=== PATIENT | female | born 1965 | race Caucasian/White ===

== ENCOUNTER 2016-11-28 14:22 | Inpatient (IN) | payer OTHER ==
[~2016-11-28] VITALS: Ht 154.9 cm; Wt 76.0 kg
[2016-11-28 16:20] VITALS: BP 151/83; PULSE 92; TEMP 37; O2SAT 95; Ht 154.9 cm; Wt 76.0 kg
[2016-11-28] MEDS ORDERED: MoRPHine SULFATE 4 MG/ML 1 ML CARP\\VIAL IV STA (17:00)
[2016-11-28] MEDS ORDERED: PATIENT'S ALLERGY INFO NEEDS ENTERED SCH (17:00)
[2016-11-28] MEDS ORDERED: APIX1TAB3 PO (17:26)
[2016-11-28] MEDS ORDERED: SERT100T PO (17:26)
[2016-11-28] MEDS ORDERED: CYAN250T PO (17:26)
[2016-11-28] MEDS ORDERED: AMLO-114 PO (17:26)
[2016-11-28] MEDS ORDERED: VTMD1000 PO (17:26)
[2016-11-28] MEDS ORDERED: PANT1TAB48 PO (17:26)
[2016-11-28] MEDS ORDERED: ALUMINUM/MAGNESIUM/SIMETH (MAALOX MAX) 30 ML UDC PO PRN (17:30)
[2016-11-28] MEDS ORDERED: MAGNESIUM HYDROXIDE SUSP 30 ML UDC PO PRN ×2 (17:30→20:15)
[2016-11-28] MEDS ORDERED: ACETAMINOPHEN 325 MG TAB PO PRN (17:30)
[2016-11-28] MEDS ORDERED: POLYETHYLENE (MIRALAX) 17 GM PACK PO PRN ×2 (17:30→20:15)
[2016-11-28] MEDS ORDERED: ONDANSETRON INJ 2 MG/ML 2 ML VIAL IV PRN (17:30)
[2016-11-28] MEDS ORDERED: TIOTROPIUM BROMIDE 5 PUFF/90 MCG INH INH ONE (17:32)
[2016-11-28] MEDS ORDERED: NICOTINE 21 MG/24 HR TDSY TD ONE (17:32)
--- NOTE | 2016-11-28 17:32 | History and Physical ---
History & Physical Date & Time of Service: November 28, 2016 at 17:31 Chief Complaint: Fracture Of Left Femoral Neck Primary Care Physician: Naima Mlcain M.D. Social History Smoking Status: Current Every Day Smoker Allergies Coded Allergies: No Known Allergies (Unverified , 11/28/16) Home Medications Scheduled Amlodipine (Norvasc), 10 MG PO DAILY Apixaban (Eliquis), 5 MG PO BID Cholecalciferol (Vitamin D3), 1 TAB PO DAILY Cyanocobalamin (Vitamin B-12), 250 MCG PO DAILY Pantoprazole (Protonix), 1 TAB PO DAILY Sertraline Hcl (Zoloft), 100 MG PO DAILY Physical Exam Vital Signs Date Time Temp Pulse Resp B/P Pulse Ox O2 Delivery O2 Flow Rate FiO2 11/28/16 16:20 37.0 92 18 151/83 95 Nasal Cannula 2.0 Impression Assessment and Plan admit #[id number] Advanced Directives Existing Living Will: No Existing Power of Control Specialist: No VTE Prophylaxis VTE Risk Assessment Done? Y/N: Yes Risk Level: Moderate
[2016-11-28] MEDS ORDERED: ALBUTEROL HFA 8 GM INHALER INH PRN (17:45)
--- NOTE | 2016-11-28 18:28 | HISTORY & PHYSICAL EXAMINATION ---
DATE OF ADMISSION: 11/28/2016 CHIEF COMPLAINT: Fall and right leg pain. HISTORY OF PRESENT ILLNESS: The patient is a very pleasant 51-year-old female who had actually gone to latter-day. She notes that was the first time she had gone, her daughter was really going to be happy and unfortunately she does not know if she stepped wrong or if she just got her foot caught on the carpet or something, but she fell and had immediate right leg pain. She was taken to the [facility] where she was found to have femur fracture. Orthopedics was going to fix it but unfortunately she is an end-stage renal disease patient on dialysis, and they do not have nephrology or dialysis at that hospital, because of that we were asked to see her for admission. She notes no active complaints other than the right leg pain. She notes absolutely no syncope, no chest pain or shortness of breath or anything like that leading to the fall, and other than the right leg pain she generally feels pretty good. REVIEW OF SYSTEMS: Otherwise negative, except for as above. PAST MEDICAL HISTORY: End-stage renal disease, on dialysis; DVT about 6 months ago, unclear about exactly how provoked it was, but it seems like it was provoked, that is why she is on the Eliquis; congestive heart failure; hypertension; COPD. HOME MEDICATIONS: Norvasc 10 mg daily, Eliquis 5 mg p.o. b.i.d., Protonix 40 mg b.i.d., vitamin B12 250 mcg daily, vitamin D 3000 international units daily, Zoloft 100 mg daily. PAST SURGICAL HISTORY: Vascular surgeries in regards to dialysis access. ALLERGIES: No known drug allergies. SOCIAL HISTORY: She does smoke about a pack a day. No alcohol. She lives at home. FAMILY HISTORY: No significant family history. PHYSICAL EXAMINATION: VITAL SIGNS: Temperature 37, pulse 92, respiratory rate 18, blood pressure 151/83, 95% on 2 liters. GENERAL: She is awake, alert, oriented x3, appears a little uncomfortable but otherwise in no acute distress. HEENT: Normocephalic, atraumatic. Mucous membranes are moist. CARDIOVASCULAR: Regular without rubs, murmurs, or gallops. LUNGS: Clear to auscultation bilaterally. No rales, rhonchi, or wheezes with good effort. ABDOMEN: Soft, nondistended, nontender, no masses or organomegaly. EXTREMITIES: Without cyanosis, clubbing or edema. No calf tenderness. SKIN: Shows no rashes, no pallor or icterus. NEUROLOGIC: Shows cranial nerves II-XII to be grossly intact. Gross motor and sensory are intact. MENTAL STATE: Shows good recent and remote recall. Normal mood and affect. Good judgment and insight. MUSCULOSKELETAL: Shows her right leg to be shortened and externally rotated and tender with movement. LABORATORIES AND DIAGNOSTICS: Her CBC shows a white count of 16.9 with a hemoglobin 11.7, platelets 320. Sodium 141, potassium 3.7, chloride 99, CO2 28, BUN 39, creatinine 7.65, calcium 9.1, glucose 93. Her x-rays showed a femur fracture. The films are not yet viewable here but are being loaded. ASSESSMENT AND PLAN: 1. Fall. Fortunately, it appears to be a mechanical fall. Unfortunately, the main "fallout" is the femur fracture. 2. Femur fracture. Consult orthopedics for evaluation for operative treatment. Also, in regards to her bone health, I will check a vitamin D and a parathyroid hormone and recommend an outpatient DEXA in the near future. 3. End-stage renal disease on Tuesday, , Tuesday dialysis. Consult nephrology for ongoing management of this. 4. Hypertension. Continue her amlodipine. 5. Deep venous thrombosis: Her acute DVT was about 6 months ago, so it appears safe to hold her Eliquis for the surgery; however, given that she recently formed what sounds to have been a provoked DVT and she is now obviously in a very provoking situation. We will want to resume her Eliquis as soon as appears to be safe postop. 6. Chronic obstructive pulmonary disease. She has wheezing slightly. We will start Spiriva for now to help get her through the hospital stay as well as albuterol p.r.n. 7. Tobacco abuse. Start her on a nicotine patch. MTDD
[2016-11-28] MEDS: MoRPHine SULFATE 4 MG/ML 1 ML CARP\\VIAL IV PRN ×2 (19:03→21:17)
[2016-11-28] MEDS ORDERED: BISACODYL 10 MG SUPP PR PRN (20:15)
[2016-11-28] MEDS ORDERED: NALOXONE HCL 0.4 MG/1 ML VIAL/CARP IV PRN (20:15)
[2016-11-28] MEDS ORDERED: SOD PHOSPHATE/SOD BIPHOSPHATE ENEMA 132 ML BTL PR PRN (20:15)
[2016-11-28] MEDS: DOCUSATE SODIUM/SENNA 50/8.6MG TAB PO SCH (21:26)
[2016-11-28] MEDS ORDERED: ACETAMINOPHEN 500 MG TAB PO STA (22:07)
[2016-11-28] MEDS ORDERED: ERGOCALCIFEROL 50,000 INTER.UNIT CAP PO ONE (22:28)
[2016-11-28] MEDS ORDERED: HYDROmorphone INJ 1 MG/ML SYR IV PRN (22:45)
[2016-11-28 23:40] VITALS: BP 152/88; PULSE 82; TEMP 36.7; O2SAT 93
[2016-11-29] VITALS (8 sets, daily range): BP systolic 94–131; BP diastolic 56–86; PULSE 78–90; TEMP 36.3–36.8; O2SAT 92–97
[2016-11-29] MEDS ORDERED: HYDROmorphone INJ 1 MG/ML SYR IV STA (00:18)
[2016-11-29] MEDS: LORAZEPAM INJ 0.5 MG in SYRINGE 0.25 ML IV PRN ×3 (00:57→09:39)
[2016-11-29] MEDS: HYDROmorphone INJ 1 MG/ML SYR IV PRN ×6 (03:30→22:16)
[2016-11-29] MEDS: ACETAMINOPHEN IV 650 MG in EMPTY BAG 0 ML IV SCH ×2 (03:35→10:38)
--- NOTE | 2016-11-29 05:31 | ORTHOPEDIC CONSULTATION ---
DATE OF CONSULTATION: 11/28/2016 CHIEF COMPLAINT: Special attention to right hip fracture. HISTORY OF PRESENT ILLNESS: This is a 51-year-old female transferred from [facility] with right femoral neck fracture. She was transferred due to end-stage renal disease. She notes a mechanical fall. As she was going to [facility] today, she stated her right foot caught and she fell. She feels that the fall caused her fracture rather than a fracture causing her fall. She denies any syncope, chest pain or other pain problems or injury. PAST MEDICAL HISTORY: End-stage renal disease, on dialysis; history of DVT 6 months ago, currently on Eliquis; congestive heart failure; hypertension; COPD. MEDICATIONS: Norvasc, Eliquis 5 mg p.o. b.i.d. She states she last took this on Tuesday morning. Protonix 40 mg b.i.d., vitamin B12, vitamin D, and Zoloft. PAST SURGICAL HISTORY: Vascular surgeries for dialysis access. SOCIAL HISTORY: She does smoke pack a day. She is currently ambulatory without assistive aids. ALLERGIES: No known drug allergies. Xrays: AP pelvis shows a displaced intracapsular femoral neck fracture. There is a benign appearing lytic area and any intratrochanteric region does not have an aggressive appearance. PHYSICAL EXAMINATION: Right lower extremity examination: she has no tenderness in her calf. Calves are soft. She can flex and extend the ankle and the toes. She has pain with log roll of the hip. Right lower extremity is shortened and externally rotated. Right lower extremity shows pain with log roll. ASSESSMENT: 1. Right intracapsular femoral neck fracture. 2. Lytic lesion intertrochanteric region, likely benign. 3. End-stage renal disease. 4. History of recent deep venous thrombosis 6 months ago. 5. On Eliquis, last taken Tuesday. PLAN: I discussed treatment with her. Our recommendation would be for either hip hemiarthroplasty versus total hip replacement. We will continue to hold her Eliquis and when this is out of her system, we will plan for surgical treatment shortly. Her films are from [facility], but are available through the PACS viewer. Appreciate medical management and continued dialysis, typically on Tuesdays, and Saturdays. We will tentatively make her n.p.o. for tomorrow in possible anticipation of surgical intervention tomorrow afternoon. She is currently on isolation, but denies any recent infection. TENZIN
[2016-11-29] MEDS ORDERED: CEFAZOLIN 1000MG/55 ML D5W IV SCH (06:00)
[2016-11-29 07:09] LABS: BASO % 0.6 %; BASO ABS # 0.08 K/uL (0-0.2); COMPLETE YES; EOS % 3.1 %; HEMATOCRIT 34.3 % (37-47); IG% 0.6 %; LYMPH % 8.9 %; LYMPH ABS # 1.14 K/uL (1.2-3.4); MEAN CELL VOLUME 104.9 fL (80-100); MEAN CORPUSCULAR HEMOGLOBIN 31.8 pg (25-34); MEAN CORPUSCULAR HGB CONC 30.3 g/dl (32-36); MEAN PLATELET VOLUME 9.5 fL (7.4-10.4); MONO % 6.2 %; NEUT % 80.6 %; PLATELET COUNT 324 K/uL (130-400); RED BLOOD COUNT 3.27 M/uL (4.2-5.4); WHITE BLOOD COUNT 12.76 K/uL (4.8-10.8)
[2016-11-29 07:21] LABS: PARTIAL THROMBOPLASTIN RATIO 1.1; PROTHROMBIN TIME (PATIENT) 10.5 SECONDS (9.0-12.0)
[2016-11-29 07:50] LABS: BUN/CREATININE RATIO 5.7 (10-20); CALCIUM 8.7 mg/dl (8.5-10.1)
--- NOTE | 2016-11-29 08:32 | Clinical Documentation Query ---
CLINICAL DOCUMENTATION QUERY 51-y/o female who fell and fractured her right femur. Query #1/2 In your clinical opinion is this patient being managed for: ( x ) Likely osteoporotic traumatic right femur fracture due to ground level fall where normal healthy bone would not have fractured. ( ) Other explanation of clinical findings (Please Explain) ( ) Unable to determine (Please Define) ( ) Need to Discuss ( ) Not Agree The medical record reflects the following clinical findings, treatment, and risk factors. Clinical Indicators: 51 y/o female who fell from ground level to right side. A right intracapsular femur fracture was diagnosed by orthopedics. An osteoporotic workup was initiated. Vitamin D 26.7, PTH intact 475.5, Treatment: Orthopedic consult, Vitamin D level, parathyroid level, outpatient DEXA scan. Risk Factors: Age, sex, elevated PTH and low Vitamin D Query #2/2 In your clinical opinion is this patient being managed for: (x ) Chronic diastolic (Preserved EF) heart failure ( ) Other explanation of clinical findings (Please Explain) ( ) Unable to determine (Please Define) ( ) Need to Discuss ( ) Not Agree The medical record reflects the following clinical findings, treatment, and risk factors. Clinical Indicators: H&P notes hx of CHF. The medical record documentation is now expected to include definitive and explicit description of the patient's heart failure; vague terms such as "heart failure," ventricular dysfunction," and "CHF" may not fully capture the physician's intended level of severity. Treatment: IM consult, Norvasc, inpatient dialysis, Risk Factors: Age, ESRD, and HTN Please clarify and document your clinical opinion in the progress notes and discharge summary. Terms such as "probable", "suspected", "likely", "questionable", "possible", or "still to be ruled out" are acceptable. IF IN AGREEMENT, YOU MUST DOCUMENT ABOVE DIAGNOSTIC STATEMENT IN DAILY PROGRESS NOTES AND DISCHARGE SUMMARY. This document is not part of the patient's record. Thank You, Celio Larry RN [phone]
[2016-11-29] MEDS: AMLODIPINE BESYLATE 5 MG TAB PO SCH (08:39)
[2016-11-29] MEDS: SERTRALINE HCL 100 MG TAB PO SCH (08:40)
[2016-11-29] MEDS: CYANOCOBALAMIN 500 MCG TAB (VIT B-12) PO SCH (08:40)
[2016-11-29] MEDS: PANTOprazole SOD 40 MG TAB PO SCH (08:40)
[2016-11-29] MEDS: TIOTROPIUM BROMIDE 5 PUFF/90 MCG INH INH SCH (09:00)
[2016-11-29] MEDS ORDERED: CHOLECALCIFEROL 1000 INTER.UNIT TAB PO SCH (09:00)
[2016-11-29] MEDS: NICOTINE 21 MG/24 HR TDSY TD SCH (09:16)
--- NOTE | 2016-11-29 10:38 | Nephrology Consultation ---
Nephrology Consultation Date & Providers Date of Consultation: November 29, 2016. Primary Care Provider: Naima Mclain M.D. Referring Provider: Reason for Consultation To provide in patient HD for this patient w/ ESRD on TTS HD admitted with right hip fracture. History of Present Illness Ms. Mitchell is a 51 year old white female who is seen at the request of Dr. Monroy to provide in patient HD and assist w/ her medical management. Medical records in the hospital EMR were reviewed today and are summarized as follows: The patient has ESRD due to HTN. 4 years ago she was living in [place] when she developed kidney failure. She was started on peritoneal dialysis and used a nighttime cycler. 2 years ago she moved to [place], [place] to live with her son. The local dialysis unit did not offer PD therapy and the patient had her catheter removed. Attempts were made to create a right upper arm AVF. This was unsuccessful. The patient has been dialyzing using a R IJ THC. She has had this changed out several times due to infection. She reports that she is scheduled to have a left upper arm AVF created by Dr. Mejía later this month. The patient denies complications with her dialysis treatments. I did contact the [facility] HD unit and spoke w/ Hortencia RN . She reports that the patient frequently misses treatments, has not kept appointments to have new AVF created and has been difficult to contact by telephone. Her primary inseam trimmer is Dr. Foster. Her dialysis prescription is TTS 3.5 hr 2K 2.5Ca EDW 68.5 Kg Epo 5800 Venofer 50 weekly Hectrol 9 mcg w/ each dialysis. The patient has a h/o CHF, DVT on anticoagulation therapy , HTN, depression, COPD w/ ongoing tobacco use. Ms. Mitchell was attending [facility] this weekend when she suffered a mechanical fall. She fractured her right femoral neck. She is scheduled for surgery later today. Allergies Coded Allergies: No Known Allergies (Unverified , 11/28/16) Inpatient Medications Current Inpatient Medications Medications (Trade) Dose Ordered Sig/Francisco Route Start Time Stop Time Status Last Admin Dose Admin Acetaminophen (Tylenol Tab) 650 mg Q4H PRN PO 11/28/16 17:30 12/28/16 17:29 Al Hydrox/Mg Hydrox/Simethicone (Maalox Max Susp) 15 ml Q4H PRN PO 11/28/16 17:30 12/28/16 17:29 Ondansetron HCl (Zofran Inj) 4 mg Q6H PRN IV 11/28/16 17:30 12/28/16 17:29 Amlodipine Besylate (Norvasc Tab) 10 mg DAILY PO 11/29/16 09:00 12/29/16 08:59 Cholecalciferol (Vitamin D Tab) 1,000 inter.unit DAILY PO 11/29/16 09:00 12/29/16 08:59 Cyanocobalamin (Vitamin B-12 Tab) 250 mcg DAILY PO 11/29/16 09:00 12/29/16 08:59 Pantoprazole Sodium (Protonix Tab) 40 mg DAILY PO 11/29/16 09:00 12/29/16 08:59 Sertraline HCl (Zoloft Tab) 100 mg DAILY PO 11/29/16 09:00 12/29/16 08:59 Nicotine (Nicoderm Cq 21MG Patch) 1 patch QAM TD 11/29/16 09:00 12/29/16 08:59 11/29/16 09:16 1 PATCH Miscellaneous (Remove Nicoderm Patch) 1 ea HS N/A 11/28/16 21:00 12/28/16 20:59 Tiotropium [place] (Spiriva Handihaler Inhaler) 1 puff QAM INH 11/29/16 09:00 12/29/16 08:59 Albuterol (Ventolin Hfa Inhaler) 1 puffs Q4 PRN INH 11/28/16 17:45 12/28/16 17:44 Naloxone HCl (Narcan Inj) 0.1 mg PRN PRN IV 11/28/16 20:15 12/28/16 20:14 Senna/Docusate Sodium (Senokot S Tab) 2 tab HS PO 11/28/16 21:00 12/28/16 20:59 11/28/16 21:26 2 TAB Polyethylene (Miralax Powder Packet) 17 gm DAILY PRN PO 11/28/16 20:15 12/28/16 20:14 Magnesium Hydroxide (Milk Of Magnesia Susp) 30 ml DAILY PRN PO 11/28/16 20:15 12/28/16 20:14 Bisacodyl (Dulcolax Supp) 10 mg DAILY PRN IN 11/28/16 20:15 12/28/16 20:14 Sodium Biphosphate/ Sodium Phosphate 132 ml 132 ml PRN PRN IN 11/28/16 20:15 12/08/16 20:14 Cefazolin Sodium (Ancef 1000mg/55 ml D5W) 55 ml @ 100 mls/hr PREOP IV 11/29/16 06:00 11/29/16 18:00 Ergocalciferol 42615 interunit 50,000 interunit Del Cid@0900 PO 12/05/16 09:00 01/04/17 08:59 Acetaminophen/ Empty Bag (Ofirmev Iv/ Empty Iv Bag 100ml) 65 ml @ 260 mls/hr Q6H IV 11/29/16 04:00 12/29/16 03:59 11/29/16 03:35 260 MLS/HR Hydromorphone HCl 1 mg 1 mg Q2H PRN IV 11/29/16 02:00 12/13/16 01:59 11/29/16 07:51 1 MG Lorazepam/Syringe (Ativan Inj/ Syringe) 0.5 ml @ 0.5 mls/min Q4H PRN IV 11/29/16 00:45 12/29/16 00:44 11/29/16 09:39 0.5 MLS/MIN Epoetin Tl (Procrit Inj) 6,000 units ONE ONCE IV. 11/30/16 06:00 11/30/16 06:01 UNV Paricalcitol 3 mcg 3 mcg ONE ONCE IV. 11/30/16 06:00 11/30/16 06:01 UNV Iron Sucrose/ Syringe (Venofer Inj/ Syringe) 5 ml @ 1 mls/min ONE ONCE IV 11/30/16 06:00 11/30/16 06:04 UNV Heparin Sodium (Porcine) (No Heparin In Dialysis) 1 ea ONE ONCE N/A 11/30/16 06:00 11/30/16 06:01 UNV Family History Brother w/ ESRD from unknown cause. He is s/p renal transplant Social History Smoking Status: Current Every Day Smoker . Medically disabled. 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 Son 08/10. Three children in good health. Current every day smoker. Review of Systems Constitutional: No fever Respiratory: + wheezing, No cough, No sputum Cardiovascular: No chest pain Abdomen: No nausea, No pain, No vomiting Integumentary: No rash A complete review of systems was performed. Pertinent positives are noted above. All other systems are negative. Physical Exam Date Time Temp Pulse Resp B/P Pulse Ox O2 Delivery O2 Flow Rate FiO2 11/29/16 07:25 Nasal Cannula 2.0 11/29/16 07:15 36.7 90 18 131/84 92 Nasal Cannula 1.0 11/29/16 00:20 Nasal Cannula 2.0 11/28/16 23:40 36.7 82 20 152/88 93 Nasal Cannula 1.0 11/28/16 16:20 37.0 92 18 151/83 95 Nasal Cannula 2.0 11/28/16 16:20 Nasal Cannula 2.0 11/28/16 16:20 37.0 92 18 151/83 95 Nasal Cannula 2.0 General Appearance: + mild distress (due to right hip discomfort) Head: normocephalic, atraumatic Eyes: PERRL, EOMI ENT: + pertinent finding (dentition in poor repair) Neck: supple, + pertinent finding (R IJ THC with dry dressing in place) Respiratory/Chest: + wheezing (soft bilateral expiratory wheezing) Cardiovascular: regular rate, rhythm Abdomen/GI: normal bowel sounds, non tender, soft, + pertinent finding (healed incisions from previous PD catheter) Extremities/Musculoskelatal: + pertinent finding (RUE AVF silent) Neurologic/Psych: alert, oriented x 3 Skin: warm/dry, no rash Laboratory Results Last 24 Hours Test 11/28/16 18:20 11/29/16 06:34 25-Hydroxy Vitamin D Total 26.7 ng/ml Parathyroid Hormone (Intact) 475.5 pg/mL White Blood Count 12.76 K/uL Red Blood Count 3.27 M/uL Hemoglobin 10.4 g/dL Hematocrit 34.3 % Mean Corpuscular Volume 104.9 fL Mean Corpuscular Hemoglobin 31.8 pg Mean Corpuscular Hemoglobin Concent 30.3 g/dl Platelet Count 324 K/uL Mean Platelet Volume 9.5 fL Neutrophils (%) (Auto) 80.6 % Lymphocytes (%) (Auto) 8.9 % Monocytes (%) (Auto) 6.2 % Eosinophils (%) (Auto) 3.1 % Basophils (%) (Auto) 0.6 % Neutrophils # (Auto) 10.27 K/uL Lymphocytes # (Auto) 1.14 K/uL Monocytes # (Auto) 0.79 K/uL Eosinophils # (Auto) 0.40 K/uL Basophils # (Auto) 0.08 K/uL RDW Standard Deviation 69.8 fL RDW Coefficient of Variation 18.5 % Immature Granulocyte % (Auto) 0.6 % Immature Granulocyte # (Auto) 0.08 K/uL Prothrombin Time 10.5 SECONDS Prothromb Time International Ratio 1.0 Activated Partial Thromboplast Time 28.5 SECONDS Partial Thromboplastin Ratio 1.1 Sodium Level 134 mmol/L Potassium Level 4.0 mmol/L Chloride Level 96 mmol/L Carbon Dioxide Level 27 mmol/L Anion Gap 11.0 mmol/L Blood Urea Nitrogen 51 mg/dl Creatinine 9.00 mg/dl Est Creatinine Clear Calc Drug Dose 6.6 ml/min Estimated GFR () 5.3 Estimated GFR (Non- 4.6 BUN/Creatinine Ratio 5.7 Random Glucose 91 mg/dl Calcium Level 8.7 mg/dl Total Bilirubin 0.4 mg/dl Direct Bilirubin 0.1 mg/dl Aspartate Amino Transf (AST/SGOT) 19 U/L Alanine Aminotransferase (ALT/SGPT) 20 U/L Alkaline Phosphatase 117 U/L Total Protein 6.6 gm/dl Albumin 3.3 gm/dl Impression (1) End-stage renal disease on hemodialysis (2) Femur fracture (3) Hypertension (4) Anemia (5) COPD (chronic obstructive pulmonary disease) (6) Current every day smoker (7) Depression Patient admitted following mechanical fall resulting in right femoral neck fracture. She is scheduled for orthopedic repair today. She has ESRD due to HTN and has been on [employer] x 4 years. Patient currently dialyzes TTS at [facility] (3.5hr 2K 2Ca HCO3 40 Na 138 Heparin 2000 load/1000hr EDW 68.5 Epo 5800 Venofer 50 weekly Hectrol 9 mcg each treatment). Patient dialyzes via R IJ THC she is awaiting AVF creation. PMH - ESRD, HTN, CHF, DVT on anticoagulation therapy, depression, COPD w/ ongoing tobacco use. Recommendations END STAGE RENAL DISEASE: -- HD tomorrow. Heparin free. Chronic orders from home HD obtained and reviewed today. Orders entered into EMR and HD RN notified -- Recommend ESRD diet -- Will provide renal vitamin HYPERTENSION: -- Blood pressure is currently acceptable. Continue to monitor. No change to current antihypertensive regimen at this time. ANEMIA: -- Monitor H&H -- Will provide DEMETRIA w/ dialysis treatments BONE & MINERAL METABOLISM: -- Will provide Zemplar w/ dialysis treatments -- Stop OTC vitamin D and ergocalciferol OTHER: -- Patient has h/o DVT on anticoagulation therapy. No data currently available regarding the safety of Eliquis in HD patients. Recommend using Warfarin if continued anticoagulation is needed -- Recommend consultation w/ smoking cessation RN while hospitalized -- Await further Orthopedic input / intervention
[2016-11-29] MEDS ORDERED: HYDROmorphone INJ 1 MG/ML SYR IV ONE (12:15)
[2016-11-29] MEDS ORDERED: MIDAZOLAM HCL 1 MG/ML 2ML VIAL ONE (13:23)
[2016-11-29] MEDS ORDERED: FENTANYL CITRATE INJ 50 MCG/1 ML 2 ML VIAL ONE (13:24)
--- NOTE | 2016-11-29 14:13 | History & Physical Bridge Note ---
H&P Re-Evaluation Bridge Note: I have examined the patient, reviewed the History & Physical and in the interval since the performance of the History & Physical I have noted the following changes of clinical significance: No changes noted
[2016-11-29] MEDS ORDERED: ORTHO JOINT ANESTHETIC ONE ×3 (14:51→16:16)
[2016-11-29] MEDS ORDERED: BUPIVACAINE 0.5 % 5 MG/1 ML PF 10ML VIAL ONE (14:52)
[2016-11-29] MEDS ORDERED: POVIDONE-IODINE OP SOLN 30 ML BTL ONE (14:53)
[2016-11-29] MEDS ORDERED: BACITRACIN 50000 UNIT VIAL ONE (14:55)
[2016-11-29] MEDS ORDERED: VANCOMYCIN INJ 400 MG in NSS 100ML IR SCH (16:00)
[2016-11-29] MEDS ORDERED: POLYMYXIN B SULFATE 100,000 UNITS in NSS 100ML IR SCH (16:00)
[2016-11-29] MEDS ORDERED: ROPIVACAINE 5MG/ML 30 ML 150 MG, BUPIVACAINE/EPINEPHR 0.5% MPF 30 ML, KETOROLAC TROMETH... INFIL SCH ×7 (16:00)
[2016-11-29] MEDS ORDERED: PROPOFOL IV EMULSION 10 MG/ML 20 ML VIAL IV ONE ×2 (16:48→17:01)
[2016-11-29] MEDS ORDERED: LIDOCAINE HCL 2% 2 ML VIAL (20MG/ML) ONE (16:48)
[2016-11-29] MEDS ORDERED: PHENYLEPHRINE HCL INJ 10 MG/ML VIAL ONE (17:01)
--- NOTE | 2016-11-29 17:46 | Progress Note ---
Subjective Date of Service: November 29, 2016. Subjective Pt evaluation today including: conversation w/ patient, physical exam, chart review, lab review, review of inpatient medication list Review of Systems Constitutional: No chills, No fatigue, No fever, No problem reported, No see HPI, No sweats, No weakness, No weight loss Eyes: No diplopia, No discharge, No eye pain, No problem reported, No redness, No see HPI, No worsening of vision ENT: No dental problems, No hearing loss, No nasal symptoms, No problem reported, No see HPI, No sore throat, No tinnitus, No trouble swallowing, No unusual epistaxis Respiratory: No cough, No dyspnea at rest, No dyspnea on exertion, No hemoptysis, No problem reported, No see HPI, No shortness of breath, No sputum, No wheezing Cardiac: No PND, No chest pain, No claudication, No edema, No orthopnea, No palpitations, No problem reported, No see HPI Abdomen: No GI bleeding, No constipation, No diarrhea, No nausea, No pain, No problem reported, No see HPI, No vomiting Musculoskeletal: + joint pain Neurologic: No balance problems, No memory loss, No numbness/tingling, No paralysis, No problem reported, No see HPI, No vertigo, No weakness Psychiatric: No anhedonism, No anxiety, No depression symptoms, No insomnia, No problem reported, No see HPI, No substance abuse Heme: No abnormal bleeding/bruising, No clotting problems, No night sweats, No problem reported, No see HPI, No swollen lymph nodes Endo: No excessive thirst, No excessive urination, No fatigue, No problem reported, No see HPI Skin: No bleeding, No color change, No itch, No new/changing skin lesions, No problem reported, No rash, No see HPI Medications Current Inpatient Medications Medications (Trade) Dose Ordered Sig/Francisco Route Start Time Stop Time Status Last Admin Dose Admin Acetaminophen (Tylenol Tab) 650 mg Q4H PRN PO 11/28/16 17:30 12/28/16 17:29 Al Hydrox/Mg Hydrox/Simethicone (Maalox Max Susp) 15 ml Q4H PRN PO 11/28/16 17:30 12/28/16 17:29 Ondansetron HCl (Zofran Inj) 4 mg Q6H PRN IV 11/28/16 17:30 12/28/16 17:29 Amlodipine Besylate (Norvasc Tab) 10 mg DAILY PO 11/29/16 09:00 12/29/16 08:59 Cyanocobalamin (Vitamin B-12 Tab) 250 mcg DAILY PO 11/29/16 09:00 12/29/16 08:59 Pantoprazole Sodium (Protonix Tab) 40 mg DAILY PO 11/29/16 09:00 12/29/16 08:59 Sertraline HCl (Zoloft Tab) 100 mg DAILY PO 11/29/16 09:00 12/29/16 08:59 Nicotine (Nicoderm Cq 21MG Patch) 1 patch QAM TD 11/29/16 09:00 12/29/16 08:59 11/29/16 09:16 1 PATCH Miscellaneous (Remove Nicoderm Patch) 1 ea HS N/A 11/28/16 21:00 12/28/16 20:59 Tiotropium [place] (Spiriva Handihaler Inhaler) 1 puff QAM INH 11/29/16 09:00 12/29/16 08:59 Albuterol (Ventolin Hfa Inhaler) 1 puffs Q4 PRN INH 11/28/16 17:45 12/28/16 17:44 Naloxone HCl (Narcan Inj) 0.1 mg PRN PRN IV 11/28/16 20:15 12/28/16 20:14 Senna/Docusate Sodium (Senokot S Tab) 2 tab HS PO 11/28/16 21:00 12/28/16 20:59 11/28/16 21:26 2 TAB Polyethylene (Miralax Powder Packet) 17 gm DAILY PRN PO 11/28/16 20:15 12/28/16 20:14 Magnesium Hydroxide (Milk Of Magnesia Susp) 30 ml DAILY PRN PO 11/28/16 20:15 12/28/16 20:14 Bisacodyl (Dulcolax Supp) 10 mg DAILY PRN NC 11/28/16 20:15 12/28/16 20:14 Sodium Biphosphate/ Sodium Phosphate 132 ml 132 ml PRN PRN NC 11/28/16 20:15 12/08/16 20:14 Cefazolin Sodium 55 ml @ 100 mls/hr PREOP IV 11/29/16 06:00 11/29/16 18:00 11/29/16 17:38 100 MLS/HR Acetaminophen/ Empty Bag (Ofirmev Iv/ Empty Iv Bag 100ml) 65 ml @ 260 mls/hr Q6H IV 11/29/16 04:00 12/29/16 03:59 11/29/16 10:38 260 MLS/HR Hydromorphone HCl 1 mg 1 mg Q2H PRN IV 11/29/16 02:00 12/13/16 01:59 11/29/16 10:39 1 MG Lorazepam/Syringe (Ativan Inj/ Syringe) 0.5 ml @ 0.5 mls/min Q4H PRN IV 11/29/16 00:45 12/29/16 00:44 11/29/16 09:39 0.5 MLS/MIN Paricalcitol 3 mcg 3 mcg ONE ONCE IV. 11/30/16 06:00 11/30/16 06:01 Iron Sucrose/ Syringe (Venofer Inj/ Syringe) 5 ml @ 1 mls/min ONE@0600 ONCE IV 11/30/16 06:00 11/30/16 06:04 Heparin Sodium (Porcine) 1 ea 1 ea ONE ONCE N/A 11/30/16 06:00 11/30/16 06:01 Epoetin Tl/ Syringe (Procrit Inj/ Syringe) 0.3 ml @ 1 mls/min Tu@0800 IV. 11/30/16 08:00 11/30/16 18:00 Vitamin B Complex/ Vit C/Folic Acid 1 cap 1 cap QAM PO 11/30/16 09:00 12/30/16 08:59 Ropivacaine 150 mg/Bupivacaine HCl/Epinephrine Bitart 30 ml/ Ketorolac Tromethamine 30 mg/Dexamethasone Sodium Phosphate 4 mg/Ketamine HCl 10 mg/Clonidine 100 mcg/Sodium Chloride 30 ml/ Empty Bag 93.2 ml @ 0 mls/hr TODAY@1600 INFIL 11/29/16 16:00 11/29/16 20:00 Polymyxin B Sulfate 346332 units/Sodium Chloride 102 ml @ 0 mls/hr 1600 IR 11/29/16 16:00 11/29/16 20:00 Vancomycin HCl/ Sodium Chloride (Vancomycin Inj/ Nss 100ml) 108 ml @ 0 mls/hr 1600 IR 11/29/16 16:00 11/29/16 20:00 Objective Vital Signs Date Time Temp Pulse Resp B/P Pulse Ox O2 Delivery O2 Flow Rate FiO2 11/29/16 12:12 78 16 128/86 93 Nasal Cannula 2.0 11/29/16 07:25 Nasal Cannula 2.0 11/29/16 07:15 36.7 90 18 131/84 92 Nasal Cannula 1.0 11/29/16 00:20 Nasal Cannula 2.0 11/28/16 23:40 36.7 82 20 152/88 93 Nasal Cannula 1.0 Physical Exam General Appearance: WD/WN, no apparent distress Eyes: normal inspection, EOMI ENT: normal ENT inspection, hearing grossly normal Neck: supple Respiratory/Chest: chest non-tender, lungs clear, normal breath sounds, no respiratory distress Cardiovascular: regular rate, rhythm, no edema, no gallop, no JVD, no murmur Abdomen: normal bowel sounds, non tender, soft, no organomegaly Extremities: + pertinent finding (decrease ROM) Neurologic/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, no motor/sensory deficits, alert, normal mood/affect, oriented x 3 Skin: normal color, warm/dry, no rash Laboratory Results Last 24 Hours Test 11/28/16 18:20 11/29/16 06:34 11/29/16 15:13 25-Hydroxy Vitamin D Total 26.7 ng/ml Parathyroid Hormone (Intact) 475.5 pg/mL White Blood Count 12.76 K/uL Red Blood Count 3.27 M/uL Hemoglobin 10.4 g/dL Hematocrit 34.3 % Mean Corpuscular Volume 104.9 fL Mean Corpuscular Hemoglobin 31.8 pg Mean Corpuscular Hemoglobin Concent 30.3 g/dl Platelet Count 324 K/uL Mean Platelet Volume 9.5 fL Neutrophils (%) (Auto) 80.6 % Lymphocytes (%) (Auto) 8.9 % Monocytes (%) (Auto) 6.2 % Eosinophils (%) (Auto) 3.1 % Basophils (%) (Auto) 0.6 % Neutrophils # (Auto) 10.27 K/uL Lymphocytes # (Auto) 1.14 K/uL Monocytes # (Auto) 0.79 K/uL Eosinophils # (Auto) 0.40 K/uL Basophils # (Auto) 0.08 K/uL RDW Standard Deviation 69.8 fL RDW Coefficient of Variation 18.5 % Immature Granulocyte % (Auto) 0.6 % Immature Granulocyte # (Auto) 0.08 K/uL Prothrombin Time 10.5 SECONDS Prothromb Time International Ratio 1.0 Activated Partial Thromboplast Time 28.5 SECONDS Partial Thromboplastin Ratio 1.1 Sodium Level 134 mmol/L Potassium Level 4.0 mmol/L Chloride Level 96 mmol/L Carbon Dioxide Level 27 mmol/L Anion Gap 11.0 mmol/L Blood Urea Nitrogen 51 mg/dl Creatinine 9.00 mg/dl Est Creatinine Clear Calc Drug Dose 6.6 ml/min Estimated GFR () 5.3 Estimated GFR (Non- 4.6 BUN/Creatinine Ratio 5.7 Random Glucose 91 mg/dl Calcium Level 8.7 mg/dl Total Bilirubin 0.4 mg/dl Direct Bilirubin 0.1 mg/dl Aspartate Amino Transf (AST/SGOT) 19 U/L Alanine Aminotransferase (ALT/SGPT) 20 U/L Alkaline Phosphatase 117 U/L Total Protein 6.6 gm/dl Albumin 3.3 gm/dl Bedside Urine Test NEG Assessment and Plan S/P mechanical fall and Right intracapsular femoral neck fracture. Incidental Lytic lesion intertrochanteric region, likely benign. End-stage renal disease. History of recent deep venous thrombosis 6 months ago On Eliquis. Chronic obstructive pulmonary disease Tobacco abuse. 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
--- NOTE | 2016-11-29 17:47 | [facility] Post Operative Brief Note ---
Immediate Operative Summary Operative Date November 29, 2016. Pre-Operative Diagnosis Right intracapsular femoral neck facture Post-Operative Diagnosis Same as preoperative diagnosis Procedure(s) Performed Right Anterior Total Hip Arthroplasty Surgeon Dr Pastrana [employer] Consultant Surgeon(s) Verena Powell PA-C Estimated Blood Loss 250CC Findings djd Specimens A: Right femoral head Complication(s) None Disposition Recovery Room / PACU
--- NOTE | 2016-11-29 17:58 | DIAGNOSTIC IMAGING REPORT ---
RIGHT HIP UNILATERAL 1 VIEW CLINICAL HISTORY: RT ANTERIOR HIP Right COMPARISON: None. DISCUSSION: Imaged intensifier was used for a total right hip arthroplasty. expected soft tissue postoperative change IMPRESSION: Image intensifier was used for a total right hip arthroplasty. Electronically signed by: Shai So M.D. 11/29/2016 5:57 PM Dictated Date/Time: 11/29/2016 5:57 PM
[2016-11-29] MEDS ORDERED: MoRPHine SULFATE 2 MG/ML CARP IV PRN (18:00)
[2016-11-29] MEDS ORDERED: ONDANSETRON INJ 2 MG/ML 2 ML VIAL IV PRN (18:00)
[2016-11-29] MEDS ORDERED: MAGNESIUM HYDROXIDE SUSP 30 ML UDC PO PRN (18:00)
[2016-11-29] MEDS ORDERED: SOD PHOSPHATE/SOD BIPHOSPHATE ENEMA 132 ML BTL PR PRN (18:00)
[2016-11-29] MEDS ORDERED: DiphenhydrAMINE HCL 50 MG/ML VIAL IV PRN (18:00)
[2016-11-29] MEDS ORDERED: METOCLOPRAMIDE HCL INJ 5 MG/ML 2 ML VIAL IV PRN (18:00)
[2016-11-29] MEDS ORDERED: BISACODYL 10 MG SUPP PR PRN (18:00)
[2016-11-29] MEDS ORDERED: ALUMINUM/MAGNESIUM/SIMETH (MAALOX MAX) 30 ML UDC PO PRN (18:00)
[2016-11-29] MEDS ORDERED: ZOLPIDEM TARTRATE 5 MG TAB PO PRN (18:00)
--- NOTE | 2016-11-29 18:37 | DIAGNOSTIC IMAGING REPORT ---
RIGHT PELVIS/UNILATERAL HIP 1 VIEW CLINICAL HISTORY: IN PACU - A/P PELVIS and LATERAL HIP INCLUDING ALL OF IMPLANT Right postoperative evaluation COMPARISON: None. DISCUSSION: Total right hip prosthetic in good position. Surgical drains in position. Alignment is anatomic. Expected soft tissue postoperative change IMPRESSION: Anatomic alignment status post total right hip arthroplasty Electronically signed by: Shai So M.D. 11/29/2016 6:36 PM Dictated Date/Time: 11/29/2016 6:35 PM
--- NOTE | 2016-11-29 18:45 | Anesthesiology Progress Note ---
Anesthesia Post Op Note Date & Time November 29, 2016 at 18:45 Vital Signs Pain Intensity: 0 Vital Signs Past 12 Hours Date Time Temp Pulse Resp B/P Pulse Ox O2 Delivery O2 Flow Rate FiO2 11/29/16 18:35 36.5 78 89 100/61 95 Nasal Cannula 3 11/29/16 18:20 36.5 83 89 128/72 95 Nasal Cannula 3 11/29/16 18:10 87 89 132/75 95 Nasal Cannula 3 11/29/16 18:02 36.3 89 89 98/80 98 Nasal Cannula 3 11/29/16 12:12 78 16 128/86 93 Nasal Cannula 2.0 11/29/16 07:25 Nasal Cannula 2.0 11/29/16 07:15 36.7 90 18 131/84 92 Nasal Cannula 1.0 Notes Mental Status: alert / awake / arousable, participated in evaluation Pt Amnestic to Procedure: Yes Nausea / Vomiting: adequately controlled Pain: adequately controlled Airway Patency, RR, SpO2: stable & adequate BP & HR: stable & adequate Hydration State: stable & adequate Neuraxial Anesthesia: was administered, sensory block is resolving Anesthetic Complications: no major complications apparent
[2016-11-29] MEDS ORDERED: CEFAZOLIN IV SCH (20:15)
[2016-11-29] MEDS ORDERED: DEXTROSE 5% IV SCH (20:15)
[2016-11-29] MEDS: DOCUSATE SODIUM/SENNA 50/8.6MG TAB PO SCH (21:00)
[2016-11-29] MEDS: D5W AND 1/2NSS + 20MEQ KCL 1,000 ML IV SCH (21:02)
[2016-11-29] MEDS: SENNA 8.6 MG TAB PO SCH (21:02)
[2016-11-29] MEDS: CEFAZOLIN IV 1,000 MG in DEXTROSE 5% 50ML 50 ML IV SCH (22:14)
[2016-11-29] MEDS: ACETAMINOPHEN 500 MG TAB PO SCH (22:15)
[2016-11-29] MEDS: OXYCODONE HCL IR 5 MG TAB (IMMEDIATE RELEASE) PO PRN (23:58)
[2016-11-30] VITALS (30 sets, daily range): BP systolic 91–144; BP diastolic 48–86; PULSE 81–108; TEMP 36.4–37.2; O2SAT 88–98
[2016-11-30] MEDS: HYDROmorphone INJ 1 MG/ML SYR IV PRN ×5 (01:18→19:54)
[2016-11-30] MEDS: OXYCODONE HCL IR 5 MG TAB (IMMEDIATE RELEASE) PO PRN ×2 (04:11→09:40)
--- NOTE | 2016-11-30 04:30 | OPERATIVE REPORT ---
DATE OF OPERATION: 11/29/2016 PREOPERATIVE DIAGNOSIS: Displaced subcapital fracture, right hip. POSTOPERATIVE DIAGNOSIS: Same. PROCEDURE: Right total hip replacement. SURGEON: Krishna Pastrana MD CHEMICAL TREATMENT OPERATOR: AMNA Bellamy ANESTHESIA: Spinal. BLOOD LOSS: 250 mL. REPLACEMENT FLUIDS: 900 mL crystalloid. DRAINS: Hemovac x1. CULTURES: None. COMPLICATIONS: None. COMPONENTS USED: [employer] Polar hip system: Acetabulum size 48, femur size 2 standard offset, femoral head -3, 32 mm. NOTE: AMNA Bellamy was present and assisted throughout due to the complicated nature of this case. She helped with preparation and set up; first assisted throughout and personally closed the fascial, subcutaneous and skin layers and applied the postoperative dressing. DESCRIPTION OF PROCEDURE: Following satisfactory spinal, the patient was supine. The right leg was placed in the traction device and the left leg in the well leg zarate. The right leg was prepared with ChloraPrep and draped sterilely. Following a surgical time-out, an anterior approach was performed. The patient had extremely poor tissues and poor musculature with chronic renal disease. Circumflex femoral vessels were identified and ligated. An anterior capsulotomy was performed exposing the hip fracture. The femoral neck and head were trimmed and removed. The acetabular self-retraining retractor was placed. Acetabular reaming was completed and a 48 shell was impacted into an anatomic position and secured with a dome screw. Local anesthetic was placed. Following irrigation, the poly liner was placed. The femur was placed into a position of external rotation, extension and adduction. Femoral canal was prepared up to a size 2. There had not been any preoperative templating of the elbow. The 2 showed good fit and fill on fluoroscopy of the proximal canal and the -3 head showed yazidism of leg lengths with anatomic landmarks. The hip was dislocated. The trial component was removed. The final implant was placed. Then, after irrigation, the hip reduced with fluoroscopy confirming the position. A Betadine soak was performed for five minutes. The Betadine was then irrigated. The capsule was closed with #1 Vicryl interrupted. A drain was then placed. The fascia was closed with #1 Vicryl running, the subcutaneous tissues with 2-0 Vicryl and the skin with a running subcuticular stitch of 3-0 V-Loc. Dermabond and a dry dressing were applied. The patient was returned to her bed in stable condition. I attest to the content of the Intraoperative Record and any orders documented therein. Any exceptions are noted below. MTDD
[2016-11-30] MEDS: CEFAZOLIN IV 1,000 MG in DEXTROSE 5% 50ML 50 ML IV SCH (05:11)
--- NOTE | 2016-11-30 05:24 | Clinical Documentation Query ---
CLINICAL DOCUMENTATION QUERY 51-y/o female who fell and fractured her right femur. In your clinical opinion is this patient being managed for: ( ) Likely osteoporotic right femur fracture due to ground level fall. ( ) Other explanation of clinical findings (Please Explain) ( ) Unable to determine (Please Define) ( ) Need to Discuss ( ) Not Agree The medical record reflects the following clinical findings, treatment, and risk factors. Clinical Indicators: 51 y/o female who fell from ground level to right side. A right intracapsular femur fracture was diagnosed by orthopedics. An osteoporotic workup was initiated. Vitamin D 26.7, PTH intact 475.5, Treatment: Orthopedic consult, Vitamin D level, parathyroid level, outpatient DEXA scan. Risk Factors: Age, sex, elevated PTH and low Vitamin D Please clarify and document your clinical opinion in the progress notes and discharge summary. Terms such as "probable", "suspected", "likely", "questionable", "possible", or "still to be ruled out" are acceptable. IF IN AGREEMENT, YOU MUST DOCUMENT ABOVE DIAGNOSTIC STATEMENT IN DAILY PROGRESS NOTES AND DISCHARGE SUMMARY. This document is not part of the patient's record. Thank You, Celio Larry, REED [phone]
[2016-11-30] MEDS ORDERED: EPOETIN ALFA 10,000 UNITS/ML VIAL IV. ONE (06:00)
[2016-11-30] MEDS ORDERED: IRON SUCROSE INJ 100 MG in SYRINGE 0 ML IV ONE (06:00)
[2016-11-30] MEDS ORDERED: PARICALCITOL 5 MCG/ML VIAL (ZEMPLAR) IV. ONE (06:00)
[2016-11-30] MEDS: ACETAMINOPHEN 500 MG TAB PO SCH ×3 (07:15→21:35)
[2016-11-30] MEDS: TIOTROPIUM BROMIDE 5 PUFF/90 MCG INH INH SCH (07:39)
[2016-11-30] MEDS: SERTRALINE HCL 100 MG TAB PO SCH (07:41)
[2016-11-30] MEDS: CYANOCOBALAMIN 500 MCG TAB (VIT B-12) PO SCH (07:41)
[2016-11-30] MEDS: MULTIVITAMIN TAB PO SCH (07:42)
[2016-11-30] MEDS: AMLODIPINE BESYLATE 5 MG TAB PO SCH (07:42)
[2016-11-30] MEDS: PANTOprazole SOD 40 MG TAB PO SCH ×2 (07:42→09:00)
[2016-11-30] MEDS: NICOTINE 21 MG/24 HR TDSY TD SCH (07:45)
[2016-11-30] MEDS: NEPHROCAPS PO SCH (07:46)
[2016-11-30] MEDS ORDERED: EPOETIN ALFA INJ 6,000 UNITS in SYRINGE 0 ML IV. SCH (08:00)
--- NOTE | 2016-11-30 08:21 | Anesthesiology Progress Note ---
Anesthesia Post Op Note Date & Time November 30, 2016 at 08:21 Vital Signs Pain Intensity: 10.0 Vital Signs Past 12 Hours Date Time Temp Pulse Resp B/P Pulse Ox O2 Delivery O2 Flow Rate FiO2 11/30/16 08:17 94 Nasal Cannula 11/30/16 08:02 36.9 81 22 142/83 94 Nasal Cannula 11/30/16 04:00 36.8 81 16 137/82 94 Nasal Cannula 2.0 11/30/16 00:00 Nasal Cannula 2.0 11/29/16 23:02 36.4 80 16 119/79 97 Nasal Cannula 2.0 11/29/16 21:50 36.4 80 16 117/76 94 Nasal Cannula 3.0 11/29/16 20:50 36.8 87 18 119/78 95 Nasal Cannula 3.0 Notes Mental Status: alert / awake / arousable, participated in evaluation Pt Amnestic to Procedure: Yes Nausea / Vomiting: adequately controlled Pain: adequately controlled Airway Patency, RR, SpO2: stable & adequate BP & HR: stable & adequate Hydration State: stable & adequate Neuraxial Anesthesia: sensory block resolved Anesthetic Complications: no major complications apparent
--- NOTE | 2016-11-30 09:10 | Dialysis Progress Note ---
Hemodialysis Note Date of Service November 30, 2016. Chief Complaint To provide in patient HD for this patient w/ ESRD on TTS HD admitted with right hip fracture. Subjective Ms. Mitchell was seen & examined during HD this am. She complains of right hip discomfort but currently denies angina, dyspnea or abdominal pain. Her R IJ THC is running A-->A at Qb 300 cc/min. The patient presented w/ right femoral neck fracture following mechanical fall. She required R HOWARD yesterday. Review of Systems Constitutional: No fever Cardiovascular: No chest pain Respiratory: No dyspnea at rest Abdomen: No nausea, No pain, No vomiting Extremities: No leg edema A complete review of systems was performed. Pertinent positives are noted above. All other systems are negative. Vital Signs Last 8 Hrs Date Time Temp Pulse Resp B/P Pulse Ox O2 Delivery O2 Flow Rate FiO2 11/30/16 08:17 94 Nasal Cannula 11/30/16 08:02 36.9 81 22 142/83 94 Room Air 11/30/16 07:55 Nasal Cannula 2.0 11/30/16 04:00 36.8 81 16 137/82 94 Nasal Cannula 2.0 I & O 24-Hour Column 11/30/16 08:00 Intake Total 954 ml Output Total 675 ml Balance 279 ml Last Recorded Weight Weight (Kilograms): 70.500 Physical Exam General Appearance: WD/WN, no apparent distress Head: normocephalic, atraumatic Eyes: PERRL, EOMI Neck: no adenopathy, + pertinent finding (R IJ THC running A-->A at Qb 300 cc/ min) Respiratory/Chest: lungs clear Cardiovascular: regular rate, rhythm Abdomen/GI: normal bowel sounds, non tender, soft Extremities/Musculoskelatal: no pedal edema, + pertinent finding (R hip with clean surgical dressing and drain in place. R foot is pink & warm w/ palpable DP pulse. R upper arm AVF is silent) Neurologic/Psych: alert, oriented x 3 Family History Brother w/ ESRD from unknown cause. He is s/p renal transplant Social History . Medically disabled. 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 Son 08/10. Three children in good health. Current every day smoker. Laboratory Results Past 24 Hours Test 11/29/16 15:13 11/30/16 04:44 Bedside Urine Test NEG (NEG) Allergies Coded Allergies: No Known Allergies (Unverified , 11/28/16) Medications Current Inpatient Medications Medications (Trade) Dose Ordered Sig/Francisco Route Start Time Stop Time Status Last Admin Dose Admin Al Hydrox/Mg Hydrox/Simethicone (Maalox Max Susp) 15 ml Q4H PRN PO 11/28/16 17:30 12/28/16 17:29 Ondansetron HCl (Zofran Inj) 4 mg Q6H PRN IV 11/28/16 17:30 12/28/16 17:29 Amlodipine Besylate (Norvasc Tab) 10 mg DAILY PO 11/29/16 09:00 12/29/16 08:59 11/30/16 07:42 10 MG Cyanocobalamin (Vitamin B-12 Tab) 250 mcg DAILY PO 11/29/16 09:00 12/29/16 08:59 11/30/16 07:41 250 MCG Pantoprazole Sodium (Protonix Tab) 40 mg DAILY PO 11/29/16 09:00 12/29/16 08:59 11/30/16 07:42 40 MG Sertraline HCl (Zoloft Tab) 100 mg DAILY PO 11/29/16 09:00 12/29/16 08:59 11/30/16 07:41 100 MG Nicotine (Nicoderm Cq 21MG Patch) 1 patch QAM TD 11/29/16 09:00 12/29/16 08:59 11/30/16 07:45 1 PATCH Miscellaneous (Remove Nicoderm Patch) 1 ea HS N/A 11/28/16 21:00 12/28/16 20:59 11/29/16 21:00 1 EA Tiotropium [place] (Spiriva Handihaler Inhaler) 1 puff QAM INH 11/29/16 09:00 12/29/16 08:59 11/30/16 07:39 1 PUFF Albuterol (Ventolin Hfa Inhaler) 1 puffs Q4 PRN INH 11/28/16 17:45 12/28/16 17:44 Naloxone HCl (Narcan Inj) 0.1 mg PRN PRN IV 11/28/16 20:15 12/28/16 20:14 Senna/Docusate Sodium (Senokot S Tab) 2 tab HS PO 11/28/16 21:00 12/28/16 20:59 11/28/16 21:26 2 TAB Polyethylene (Miralax Powder Packet) 17 gm DAILY PRN PO 11/28/16 20:15 12/28/16 20:14 Magnesium Hydroxide (Milk Of Magnesia Susp) 30 ml DAILY PRN PO 11/28/16 20:15 12/28/16 20:14 Bisacodyl (Dulcolax Supp) 10 mg DAILY PRN VA 11/28/16 20:15 12/28/16 20:14 Sodium Biphosphate/ Sodium Phosphate (Fleet Enema) 132 ml PRN PRN VA 11/28/16 20:15 12/08/16 20:14 Hydromorphone HCl 1 mg 1 mg Q2H PRN IV 11/29/16 02:00 12/13/16 01:59 11/30/16 07:35 1 MG Lorazepam 0.5 mg/ Syringe 0.5 ml @ 0.5 mls/min Q4H PRN IV 11/29/16 00:45 12/29/16 00:44 11/29/16 09:39 0.5 MLS/MIN Epoetin Tl/ Syringe (Procrit Inj/ Syringe) 0.3 ml @ 1 mls/min Tu@0800 IV. 11/30/16 08:00 11/30/16 18:00 Vitamin B Complex/ Vit C/Folic Acid 1 cap 1 cap QAM PO 11/30/16 09:00 12/30/16 08:59 11/30/16 07:46 1 CAP Potassium Chloride/Dextrose/ Sod Cl (D5W And 1/2nss + 20meq KCl) 1,000 ml @ 50 mls/hr Q20H IV 11/29/16 17:47 11/30/16 17:46 11/29/16 21:02 50 MLS/HR Oxycodone HCl (Roxicodone Immediate Rel Tab) 1 TABLET FOR PAIN RATING... Q4H PRN PO 11/29/16 18:00 12/13/16 17:59 11/30/16 04:11 10 MG Morphine Sulfate (MoRPHine SULFATE INJ) 2 mg Q2HWA PRN IV 11/29/16 18:00 12/13/16 17:59 Acetaminophen (Tylenol Tab) 1,000 mg Q8H PO 11/29/16 22:00 6/7/17 21:59 11/30/16 07:15 1,000 MG Magnesium Hydroxide (Milk Of Magnesia Susp) 30 ml Q6H PRN PO 11/29/16 18:00 12/29/16 17:59 Bisacodyl (Dulcolax Supp) 10 mg DAILY PRN VA 11/29/16 18:00 12/29/16 17:59 Sodium Biphosphate/ Sodium Phosphate (Fleet Enema) 132 ml DAILY PRN VA 11/29/16 18:00 12/29/16 17:59 Senna (Senokot Tab) 17.2 mg HS PO 11/29/16 21:00 12/29/16 20:59 11/29/16 21:02 17.2 MG Diphenhydramine HCl (Benadryl Cap) 25 mg Q8H PRN PO 11/29/16 18:00 12/29/16 17:59 Diphenhydramine HCl (Benadryl Inj) 25 mg Q8H PRN IV 11/29/16 18:00 12/29/16 17:59 Al Hydrox/Mg Hydrox/Simethicone (Maalox Max Susp) 15 ml Q4H PRN PO 11/29/16 18:00 12/29/16 17:59 Zolpidem Tartrate (Ambien Tab) 5 mg HSZ PRN PO 11/29/16 18:00 12/29/16 17:59 11/29/16 22:17 5 MG Multivitamins (Multivitamin Tab) 1 tab QAM PO 11/30/16 09:00 12/30/16 08:59 11/30/16 07:42 1 TAB Ondansetron HCl (Zofran Inj) 4 mg Q6H PRN IV 11/29/16 18:00 12/29/16 17:59 Metoclopramide HCl (Reglan Inj) 10 mg Q6H PRN IV 11/29/16 18:00 12/29/16 17:59 Pantoprazole Sodium (Protonix Tab) 40 mg QAM PO 11/30/16 09:00 12/30/16 08:59 Tramadol HCl (Ultram Tab) 1 TABLET FOR PAIN RATING... Q4H PRN PO 11/29/16 18:00 12/29/16 17:59 Apixaban (Eliquis Tab) 5 mg BID PO 11/30/16 21:00 12/30/16 20:59 Impression (1) End-stage renal disease on hemodialysis (2) Femur fracture (3) Hypertension (4) Anemia (5) COPD (chronic obstructive pulmonary disease) (6) Current every day smoker (7) Depression Patient admitted following mechanical fall resulting in right femoral neck fracture. She is scheduled for orthopedic repair today. 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 Patient currently dialyzes TTS at [facility] (3.5hr 2K 2Ca HCO3 40 Na 138 Heparin 2000 load/1000hr EDW 68.5 Epo 5800 Venofer 50 weekly Hectrol 9 mcg each treatment). Patient dialyzes via R IJ THC she is awaiting AVF creation. PMH - ESRD, HTN, CHF, DVT on anticoagulation therapy, depression, COPD w/ ongoing tobacco use. Recommendations END STAGE RENAL DISEASE: -- Medically stable on HD this am. IJ THC functioning well. No change to current HD prescription -- ESRD diet -- Will recheck H&H, PRP in am HYPERTENSION: -- Blood pressure is currently acceptable. Continue to monitor. No change to current antihypertensive regimen at this time. ANEMIA: -- Monitor H&H -- Will provide DEMETRIA w/ dialysis treatments BONE & MINERAL METABOLISM: -- Will provide Zemplar w/ dialysis treatments -- Stop OTC vitamin D and ergocalciferol OTHER: -- Patient has h/o DVT on anticoagulation therapy. No data currently available regarding the safety of Eliquis in HD patients. Recommend using Warfarin if continued anticoagulation is needed -- Recommend consultation w/ smoking cessation RN while hospitalized -- Await further Orthopedic input / intervention
--- NOTE | 2016-11-30 13:24 | Consultant Recommendations ---
Loading Checker Recommendations Date of Service November 30, 2016. Loading Checker Recommendations ACTIVITY RECOMMENDATIONS: SELF CARE INSTRUCTIONS AFTER TOTAL HIP REPLACEMENT Until the incision and soft tissues around your hip have healed, there is a possibility that the hip prosthesis could dislocate. A. Observe the following precautions to prevent dislocation: 1. Don't bend your hip greater than 90 degrees. 2. Avoid crossing your legs or ankles while standing or lying. 3. Sit with your feet placed 6 inches apart. 4. When sitting, keep your knees below your hips. Sit on a firm surface, avoid deep, soft chairs and couches. Use an elevated toilet seat in the bathroom. 5. Don't bend over at the waist. Use a long handled shoehorn and a sock aid to help you put on your shoes and socks. A contract law specialist can help you supervisor picking crew objects that are too high or too low to reach. 6. Keep car riding to a minimum for at least one month after surgery. B. Your balance may be shaky for a while. Use crutches or a walker until directed by your doctor. C. Use hand rails when walking on stairs. D. Wear low heeled shoes with non-slip soles. E. Be sure that your floors are free of things that could trip you - throw rugs , electrical cords, small objects. Avoid wet and waxed floors, especially with crutches and canes. F. Try to walk several times a day with rest periods between. G. Continue with all the exercises taught to you in the hospital. Again, make walking a part of your daily routine. SPECIAL CARE INSTRUCTIONS: VERY IMPORTANT TO READ AND REVIEW A. You may still be at risk for phlebitis and blood clots. 1. Wear surgical stockings (SHUN hose) for 2 weeks after surgery to improve circulation and reduce swelling. 2. Take your Apixaban as ordered. This will be your "blood thinner" to help cut down the risk of blood clots. 3. High risk patients may be prescribed a stronger blood thinner if necessary. 4. If you are on Coumadin normally, your family doctor/senior quality assurance analyst should monitor your blood work. Expect a phone call the day of or the day after bloodwork is drawn to adjust your dosage. B. You must take antibiotics before having dental work, bladder, bowel and other surgery. Your doctor will provide you with a permanent card to carry describing precautions. C. Call [facility] if you have a fever, redness or swelling around the incision, cloudy drainage from incision, or sudden increase in pain in your hip, not relieved by your regular pain medication. D. Please call the office at if you have any concerns or questions about your operation or recovery. * YOU MAY SHOWER, NO TUB BATHS UNTIL CLEARED BY YOUR DOCTOR. * WEAR SHUN HOSE 20 HOURS PER DAY FOR 2 WEEKS. * YOU SHOULD USE A WALKER OR CRUTCHES FOR 2-4 WEEKS. THIS WILL HELP PREVENT STRAIN ON YOUR HIP MUSCLE AND ALLOW IT TO HEAL PROPERLY. YOU MAY WEAN TO A CANE TOLERATED. * MOST PATIENTS WILL HAVE HOME NURSING FOR THERAPY. IF YOU DECIDE TO DO OUTPATIENT PHYSICAL THERAPY, PLEASE SCHEDULE THIS 3 TIMES PER WEEK. * DERMABOND Prineo- This is a mesh tape dressing that is covered with glue. It should remain in place until the incision is properly healed, usually 10-14 days. This dressing is designed to naturally slough off. You may trim the excess mesh tape as it peels off. Incision may be briefly wet in a shower. Dry immediately by blotting with a clean, dry towel. Do not bath or swim until instructed by your doctor. Do not scratch, rub, or pick at the dressing. Do not apply any topical ointments or lotions until dressing is completely removed and/or instructed by your doctor. There may be a small piece of suture material at one end of your incision. Do not pull or trim this. If it is bothersome or catching on clothing, you may cover it with a band-aid. . FOLLOW UP VISIT: If appointment is not already scheduled: Please call [facility] to make a follow-up appointment for 2 weeks after your surgery at .
--- NOTE | 2016-11-30 13:29 | Orthopedic Progress Note ---
Orthopedic Progress Note Date of Service November 30, 2016. Subjective Post OP Day: 1 Additional Notes: Back from Dialysis. Having some pain in the operative hip. No other complaints. Appears comfortable. No other complaints. Objective calves soft nontender, N/V intact, hip located, dressing C/D/I, A&O x3, toes mobile Date Time Temp Pulse Resp B/P Pulse Ox O2 Delivery O2 Flow Rate FiO2 11/30/16 12:42 37.2 94 129/68 11/30/16 12:00 94 123/68 11/30/16 11:45 95 125/58 11/30/16 11:30 94 108/64 11/30/16 11:15 96 113/58 11/30/16 11:00 103 120/60 11/30/16 10:45 91 112/58 11/30/16 10:30 92 117/69 11/30/16 10:15 89 127/73 11/30/16 10:10 96 117/72 11/30/16 10:08 98 91/48 11/30/16 10:00 99 102/66 11/30/16 09:45 104 115/70 11/30/16 09:30 93 112/78 11/30/16 09:15 92 139/86 11/30/16 09:00 88 144/77 11/30/16 08:45 83 141/80 11/30/16 08:36 37.1 85 128/83 11/30/16 08:17 94 Room Air 11/30/16 08:02 36.9 81 22 142/83 94 Room Air 11/30/16 07:55 Nasal Cannula 2.0 11/30/16 04:00 36.8 81 16 137/82 94 Nasal Cannula 2.0 11/30/16 00:00 Nasal Cannula 2.0 11/29/16 23:02 36.4 80 16 119/79 97 Nasal Cannula 2.0 11/29/16 21:50 36.4 80 16 117/76 94 Nasal Cannula 3.0 11/29/16 20:50 36.8 87 18 119/78 95 Nasal Cannula 3.0 11/29/16 20:05 36.8 87 16 94/56 93 Nasal Cannula 3.0 11/29/16 19:20 36.3 90 16 106/71 95 Nasal Cannula 3.0 11/29/16 18:50 93 Nasal Cannula 3.0 11/29/16 18:50 93 Nasal Cannula 3.0 11/29/16 18:50 36.4 84 12 96/64 93 Nasal Cannula 3.0 11/29/16 18:35 36.5 78 89 100/61 95 Nasal Cannula 3 11/29/16 18:20 36.5 83 89 128/72 95 Nasal Cannula 3 11/29/16 18:10 87 89 132/75 95 Nasal Cannula 3 11/29/16 18:02 36.3 89 89 98/80 98 Nasal Cannula 3 Laboratory Results 24 Hours: Test 11/30/16 04:44 Assessment & Plan Assessment: POD 1 s/p Right HOWARD s/p displaced femoral neck fx Plan: PT/OT Pt hoping to go home with home PT. Inhouse Planning Pain Management: Shilpi Barney DVT Prophylaxis: TEDs, SCDs, other (Apixaban) Discharge Planning Discharge Planning: home with home health (?) Pain Management: [place] DVT Prophylaxis: TEDs, other (Apixaban)
[2016-11-30] MEDS ORDERED: HYDROCODONE/ACETAMI 10/325 TAB PO PRN (13:30)
[2016-11-30] MEDS: D5W AND 1/2NSS + 20MEQ KCL 1,000 ML IV SCH (13:36)
[2016-11-30 14:29] LABS: BASO % 0.2 %; BASO ABS # 0.03 K/uL (0-0.2); HEMATOCRIT 24.9 % (37-47); IG% 0.4 %; LYMPH ABS # 0.64 K/uL (1.2-3.4); MEAN CELL VOLUME 102.5 fL (80-100); MEAN CORPUSCULAR HEMOGLOBIN 32.1 pg (25-34); MEAN CORPUSCULAR HGB CONC 31.3 g/dl (32-36); MEAN PLATELET VOLUME 9.8 fL (7.4-10.4); MONO % 5.9 %; NEUT % 87.5 %; PLATELET COUNT 236 K/uL (130-400); RED BLOOD COUNT 2.43 M/uL (4.2-5.4); WHITE BLOOD COUNT 12.78 K/uL (4.8-10.8)
[2016-11-30 14:35] LABS: ALB/GLOB RATIO 0.9 (0.9-2); BUN/CREATININE RATIO 4.8 (10-20); CALCIUM 8.1 mg/dl (8.5-10.1); CREATININE 3.8 mg/dl (0.60-1.20); MAGNESIUM 2.4 mg/dl (1.8-2.4); PHOSPHORUS 3.4 mg/dl (2.5-4.9); POTASSIUM 3.5 mmol/L (3.5-5.1)
[2016-11-30 14:50] LABS: COMPLETE YES
--- NOTE | 2016-11-30 16:56 | CARDIOLOGY CONSULTATION ---
DATE OF CONSULTATION: 11/30/2016 REFERRING PHYSICIAN: Aby Hanson MD CHIEF COMPLAINT: SVT. HISTORY OF PRESENT ILLNESS: Mrs. Silvina Mitchell is a 51-year-old woman who was admitted to [facility] after suffering a right femoral head fracture. This appears to have been due to a mechanical fall. She is quite clear regarding the fact that she did not lose consciousness or suffered from dizziness leading up to the episode in question. During her hospitalization, the patient underwent operative repair of the fracture and reportedly was noted to have an episode of SVT in the postoperative period. As a result, we were consulted for evaluation. Generally speaking, the patient states that she is an active individual who has had some difficulty with ambulation due to a prior injury to the right leg. This involved getting out of the bed that was too high and potentially injuring the right leg in the process. Generally speaking, she did not have dizziness or lightheadedness. She cannot recall suffering a syncopal episode that associated with a very severe illness several years ago at which point, she was noted to have renal failure. She denies any sense of palpitations or racing heartbeat. She was told that she has congestive heart failure, the details of which are unclear. She did not follow up with the mailroom clerk. She does not recall having any specific heart treatments. Currently, she is comfortable. She states she just does have an element of dyspnea on exertion at times, but she denies orthopnea or paroxysmal nocturnal dyspnea. She states that with dialysis, her fluid level is quite stable. She denies significant swelling in her lower extremities. She denies any history of chest discomfort or chest pressure. PAST MEDICAL HISTORY: Significant for: 1. Aforementioned end-stage renal disease. 2. Hypertension. 3. Reported DVT, likely of the upper extremity. 4. COPD. 5. Tobacco abuse. PAST SURGICAL HISTORY: Includes: 1. Right arm fistula as well as multiple dialysis accesses. 2. The operative repair yesterday of her right hip fracture. OUTPATIENT MEDICATIONS: Included Norvasc, Eliquis, Protonix, Zoloft, vitamin D and vitamin B12. MEDICAL ALLERGIES: No known medical allergies. SOCIAL HISTORY: The patient continues to be pack a day smoker. She denies significant alcohol use and currently moved in with relatives here locally. FAMILY HISTORY: Significant for end-stage renal disease in her brother, otherwise noncontributory. REVIEW OF SYSTEMS: Complete 10-system review of systems was performed and the pertinent positives are noted in the history of present illness. The remainder being negative. PHYSICAL EXAMINATION: GENERAL: The patient does not appear in any acute distress. She is a pleasant individual who was interviewed during her dialysis today. She was alert and oriented x3, and answered all questions appropriately. CURRENT VITAL SIGNS: Include blood pressure of 112/78 with the pulse of 93. HEENT: Sclerae are anicteric. Pupils equal and reactive to light and accommodation. Extraocular movements were intact. Palpation in submandibular region did not reveal any significant lymphadenopathy. The carotids are palpable bilaterally. I did not appreciate any bruits on auscultation. There is no evidence of jugular venous distention and thyroid is not enlarged. LUNGS: Auscultation of both lung roberts revealed them to be clear. There were no rales, wheezes or rhonchi. She had good respiratory effort without use of accessory muscles. CARDIOVASCULAR: Revealed her to be in a regular rhythm. She had normal S1, normal S2. I do not appreciate any murmurs on examination. The PMI was not markedly displaced on palpation. She had a hemodialysis access in the right upper chest. She had a small scar at the site of a likely prior access in the left chest. ABDOMEN: Soft and nontender. EXTREMITIES: Evaluation of both wrists revealed radial pulses that were equal in intensity. There is no evidence of cyanosis or clubbing. Evaluation of the lower extremities revealed SCDs to be in place, but no significant edema. SKIN: I do not appreciate any rashes on examination today. LABORATORY STUDIES: Available for review include a CBC from yesterday with a white cell count of 12.7, hemoglobin of 10 and a platelet count of 324. Sodium is 134 yesterday, potassium is 4.0, BUN was 51 and creatinine was 9. The patient had several x-rays performed at the time of admission, which revealed her documented hip fracture. I reviewed her records from [facility] as well. ASSESSMENT AND PLAN: 1. Supraventricular tachycardia. This is by report. There is no documentation of any arrhythmia in her current record. There are no strips or recordings available for review. The patient was asymptomatic in the postoperative period. This appears to have been self limited and did not provoke any significant hemodynamic derangements. The patient does not describe symptoms or events consistent with supraventricular tachycardia in an outpatient setting. At this point, would seem reasonable to obtain a 12-lead EKG in order to assess for any potential electrical substrate for more supraventricular tachycardias. In the absence of an abnormal EKG, I will not pursue this further unless she has additional episodes. 2. Congestive heart failure. Once again, this is by report. Overall, the patient appears to have no symptoms associated with congestive heart failure. She has a normal cardiac exam without a murmur. Given the uncomplicated nature of her postoperative course, the utility of any additional evaluation is questionable. As there is no documentation of her left ventricular function, however, would seem reasonable to obtain an echocardiogram and in the presence of abnormalities arrange for outpatient followup.
[2016-11-30] MEDS: TRAMADOL HCL 50 MG TAB PO PRN (17:21)
--- NOTE | 2016-11-30 18:20 | Progress Note ---
Subjective Date of Service: November 30, 2016. Subjective Pt evaluation today including: conversation w/ patient, physical exam, chart review, lab review Review of Systems Constitutional: No chills, No fatigue, No fever, No problem reported, No see HPI, No sweats, No weakness, No weight loss Eyes: No diplopia, No discharge, No eye pain, No problem reported, No redness, No see HPI, No worsening of vision ENT: No dental problems, No hearing loss, No nasal symptoms, No problem reported, No see HPI, No sore throat, No tinnitus, No trouble swallowing, No unusual epistaxis Respiratory: No cough, No dyspnea at rest, No dyspnea on exertion, No hemoptysis, No problem reported, No see HPI, No shortness of breath, No sputum, No wheezing Cardiac: No PND, No chest pain, No claudication, No edema, No orthopnea, No palpitations, No problem reported, No see HPI Abdomen: No GI bleeding, No constipation, No diarrhea, No nausea, No pain, No problem reported, No see HPI, No vomiting Musculoskeletal: + joint pain, + muscle pain, No calf pain, No problem reported , No see HPI, No swelling Psychiatric: No anhedonism, No anxiety, No depression symptoms, No insomnia, No problem reported, No see HPI, No substance abuse Heme: No abnormal bleeding/bruising, No clotting problems, No night sweats, No problem reported, No see HPI, No swollen lymph nodes Endo: No excessive thirst, No excessive urination, No fatigue, No problem reported, No see HPI Skin: No bleeding, No color change, No itch, No new/changing skin lesions, No problem reported, No rash, No see HPI Medications Current Inpatient Medications Medications (Trade) Dose Ordered Sig/Francisco Route Start Time Stop Time Status Last Admin Dose Admin Al Hydrox/Mg Hydrox/Simethicone (Maalox Max Susp) 15 ml Q4H PRN PO 11/28/16 17:30 12/28/16 17:29 Ondansetron HCl (Zofran Inj) 4 mg Q6H PRN IV 11/28/16 17:30 12/28/16 17:29 11/30/16 12:49 4 MG Amlodipine Besylate (Norvasc Tab) 10 mg DAILY PO 11/29/16 09:00 12/29/16 08:59 11/30/16 07:42 10 MG Cyanocobalamin (Vitamin B-12 Tab) 250 mcg DAILY PO 11/29/16 09:00 12/29/16 08:59 11/30/16 07:41 250 MCG Pantoprazole Sodium (Protonix Tab) 40 mg DAILY PO 11/29/16 09:00 12/29/16 08:59 11/30/16 07:42 40 MG Sertraline HCl (Zoloft Tab) 100 mg DAILY PO 11/29/16 09:00 12/29/16 08:59 11/30/16 07:41 100 MG Nicotine (Nicoderm Cq 21MG Patch) 1 patch QAM TD 11/29/16 09:00 12/29/16 08:59 11/30/16 07:45 1 PATCH Miscellaneous (Remove Nicoderm Patch) 1 ea HS N/A 11/28/16 21:00 12/28/16 20:59 11/29/16 21:00 1 EA Tiotropium [place] (Spiriva Handihaler Inhaler) 1 puff QAM INH 11/29/16 09:00 12/29/16 08:59 11/30/16 07:39 1 PUFF Albuterol (Ventolin Hfa Inhaler) 1 puffs Q4 PRN INH 11/28/16 17:45 12/28/16 17:44 Naloxone HCl (Narcan Inj) 0.1 mg PRN PRN IV 11/28/16 20:15 12/28/16 20:14 Senna/Docusate Sodium (Senokot S Tab) 2 tab HS PO 11/28/16 21:00 12/28/16 20:59 11/28/16 21:26 2 TAB Polyethylene (Miralax Powder Packet) 17 gm DAILY PRN PO 11/28/16 20:15 12/28/16 20:14 Magnesium Hydroxide (Milk Of Magnesia Susp) 30 ml DAILY PRN PO 11/28/16 20:15 12/28/16 20:14 Bisacodyl (Dulcolax Supp) 10 mg DAILY PRN MS 11/28/16 20:15 12/28/16 20:14 Sodium Biphosphate/ Sodium Phosphate (Fleet Enema) 132 ml PRN PRN MS 11/28/16 20:15 12/08/16 20:14 Hydromorphone HCl 1 mg 1 mg Q2H PRN IV 11/29/16 02:00 12/13/16 01:59 11/30/16 12:50 1 MG Lorazepam 0.5 mg/ Syringe 0.5 ml @ 0.5 mls/min Q4H PRN IV 11/29/16 00:45 12/29/16 00:44 11/29/16 09:39 0.5 MLS/MIN Epoetin Tl/ Syringe (Procrit Inj/ Syringe) 0.3 ml @ 1 mls/min Tu@0800 IV. 11/30/16 08:00 11/30/16 18:00 11/30/16 11:24 1 MLS/MIN Vitamin B Complex/ Vit C/Folic Acid (Nephrocaps) 1 cap QAM PO 11/30/16 09:00 12/30/16 08:59 11/30/16 07:46 1 CAP Morphine Sulfate (MoRPHine SULFATE INJ) 2 mg Q2HWA PRN IV 11/29/16 18:00 12/13/16 17:59 Acetaminophen (Tylenol Tab) 1,000 mg Q8H PO 11/29/16 22:00 12/29/16 21:59 11/30/16 07:15 1,000 MG Magnesium Hydroxide (Milk Of Magnesia Susp) 30 ml Q6H PRN PO 11/29/16 18:00 12/29/16 17:59 Bisacodyl (Dulcolax Supp) 10 mg DAILY PRN MS 11/29/16 18:00 12/29/16 17:59 Sodium Biphosphate/ Sodium Phosphate (Fleet Enema) 132 ml DAILY PRN MS 11/29/16 18:00 12/29/16 17:59 Senna (Senokot Tab) 17.2 mg HS PO 11/29/16 21:00 12/29/16 20:59 11/29/16 21:02 17.2 MG Diphenhydramine HCl (Benadryl Cap) 25 mg Q8H PRN PO 11/29/16 18:00 12/29/16 17:59 Diphenhydramine HCl (Benadryl Inj) 25 mg Q8H PRN IV 11/29/16 18:00 12/29/16 17:59 Al Hydrox/Mg Hydrox/Simethicone (Maalox Max Susp) 15 ml Q4H PRN PO 11/29/16 18:00 12/29/16 17:59 Zolpidem Tartrate (Ambien Tab) 5 mg HSZ PRN PO 11/29/16 18:00 12/29/16 17:59 11/29/16 22:17 5 MG Multivitamins (Multivitamin Tab) 1 tab QAM PO 11/30/16 09:00 12/30/16 08:59 11/30/16 07:42 1 TAB Ondansetron HCl (Zofran Inj) 4 mg Q6H PRN IV 11/29/16 18:00 12/29/16 17:59 Metoclopramide HCl (Reglan Inj) 10 mg Q6H PRN IV 11/29/16 18:00 12/29/16 17:59 Pantoprazole Sodium (Protonix Tab) 40 mg QAM PO 11/30/16 09:00 12/30/16 08:59 Tramadol HCl (Ultram Tab) 1 TABLET FOR PAIN RATING... Q4H PRN PO 11/29/16 18:00 12/29/16 17:59 11/30/16 17:21 100 MG Apixaban (Eliquis Tab) 5 mg BID PO 11/30/16 21:00 12/30/16 20:59 Acetaminophen/ Hydrocodone Bitart ([place] 10/325 Tab) 1 tab Q6HWA PRN PO 11/30/16 13:30 12/14/16 13:29 11/30/16 15:23 1 TAB Objective Vital Signs Date Time Temp Pulse Resp B/P Pulse Ox O2 Delivery O2 Flow Rate FiO2 11/30/16 16:17 108 111/70 90 Room Air 11/30/16 16:16 96 118/75 94 Room Air 11/30/16 16:16 37.2 95 92/65 90 Room Air 11/30/16 13:00 36.9 101 20 99/67 90 Room Air 11/30/16 12:42 37.2 94 129/68 11/30/16 12:00 94 123/68 11/30/16 11:45 95 125/58 11/30/16 11:30 94 108/64 11/30/16 11:15 96 113/58 11/30/16 11:00 103 120/60 11/30/16 10:45 91 112/58 11/30/16 10:30 92 117/69 11/30/16 10:15 89 127/73 11/30/16 10:10 96 117/72 11/30/16 10:08 98 91/48 11/30/16 10:00 99 102/66 11/30/16 09:45 104 115/70 11/30/16 09:30 93 112/78 11/30/16 09:15 92 139/86 11/30/16 09:00 88 144/77 11/30/16 08:45 83 141/80 11/30/16 08:36 37.1 85 128/83 11/30/16 08:17 94 Room Air 11/30/16 08:02 36.9 81 22 142/83 94 Room Air 11/30/16 07:55 Nasal Cannula 2.0 11/30/16 04:00 36.8 81 16 137/82 94 Nasal Cannula 2.0 11/30/16 00:00 Nasal Cannula 2.0 11/29/16 23:02 36.4 80 16 119/79 97 Nasal Cannula 2.0 11/29/16 21:50 36.4 80 16 117/76 94 Nasal Cannula 3.0 11/29/16 20:50 36.8 87 18 119/78 95 Nasal Cannula 3.0 11/29/16 20:05 36.8 87 16 94/56 93 Nasal Cannula 3.0 11/29/16 19:20 36.3 90 16 106/71 95 Nasal Cannula 3.0 11/29/16 18:50 93 Nasal Cannula 3.0 11/29/16 18:50 93 Nasal Cannula 3.0 11/29/16 18:50 36.4 84 12 96/64 93 Nasal Cannula 3.0 11/29/16 18:35 36.5 78 89 100/61 95 Nasal Cannula 3 11/29/16 18:20 36.5 83 89 128/72 95 Nasal Cannula 3 Physical Exam General Appearance: WD/WN, no apparent distress Eyes: normal inspection, EOMI ENT: normal ENT inspection, hearing grossly normal Neck: supple Respiratory/Chest: chest non-tender, lungs clear, normal breath sounds, no respiratory distress, no accessory muscle use Cardiovascular: regular rate, rhythm, no edema, no gallop, no JVD, + systolic murmur Abdomen: normal bowel sounds, non tender, soft, no organomegaly Extremities: + pertinent finding (decrease ROM right hip) 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, no motor/sensory deficits, alert, normal mood/affect, oriented x 3 Skin: normal color, warm/dry, no rash Laboratory Results Last 24 Hours Test 11/30/16 13:47 11/30/16 14:20 Sodium Level 137 mmol/L Potassium Level 3.5 mmol/L Chloride Level 102 mmol/L Carbon Dioxide Level 27 mmol/L Anion Gap 8.0 mmol/L Blood Urea Nitrogen 18 mg/dl Creatinine 3.80 mg/dl Est Creatinine Clear Calc Drug Dose 16.4 ml/min Estimated GFR () 15.0 Estimated GFR (Non- 13.0 BUN/Creatinine Ratio 4.8 Random Glucose 134 mg/dl Calcium Level 8.1 mg/dl Phosphorus Level 3.4 mg/dl Magnesium Level 2.4 mg/dl Total Bilirubin 0.2 mg/dl Aspartate Amino Transf (AST/SGOT) 15 U/L Alanine Aminotransferase (ALT/SGPT) 17 U/L Alkaline Phosphatase 114 U/L Total Protein 6.1 gm/dl Albumin 2.9 gm/dl Globulin 3.2 gm/dl Albumin/Globulin Ratio 0.9 White Blood Count 12.78 K/uL Red Blood Count 2.43 M/uL Hemoglobin 7.8 g/dL Hematocrit 24.9 % Mean Corpuscular Volume 102.5 fL Mean Corpuscular Hemoglobin 32.1 pg Mean Corpuscular Hemoglobin Concent 31.3 g/dl Platelet Count 236 K/uL Mean Platelet Volume 9.8 fL Neutrophils (%) (Auto) 87.5 % Lymphocytes (%) (Auto) 5.0 % Monocytes (%) (Auto) 5.9 % Eosinophils (%) (Auto) 1.0 % Basophils (%) (Auto) 0.2 % Neutrophils # (Auto) 11.17 K/uL Lymphocytes # (Auto) 0.64 K/uL Monocytes # (Auto) 0.76 K/uL Eosinophils # (Auto) 0.13 K/uL Basophils # (Auto) 0.03 K/uL RDW Standard Deviation 65.8 fL RDW Coefficient of Variation 17.6 % Immature Granulocyte % (Auto) 0.4 % Immature Granulocyte # (Auto) 0.05 K/uL Red Blood Cell Morphology Unremarkable Assessment and Plan S/P mechanical fall and Right intracapsular femoral neck fracture. Incidental Lytic lesion intertrochanteric region, likely benign. End-stage renal disease. History of recent deep venous thrombosis 6 months ago was On Eliquis, will switch it to warfarin when ok with orthopedic team Chronic obstructive pulmonary disease Tobacco abuse. Plan: patient went to the OR , S/P uneventful procedure but went into SVT after the procedure that was self limiting, currently slightly tachycardic consult machine i trimmer appreciated, ordered 2D echo restart Anticoagulation as soon as orthopedic team give clearance , will go with coumadin instead of Eliquis transfuse one unit of PRPCs (D/W Dr. Jorgensen) director broadcast consult appreciated , continue dialysis inhouse DC albuterol due to the SVT SCD
--- NOTE | 2016-11-30 18:29 | ECHOCARDIOGRAM REPORT ---
*NOTICE TO RECEIVING REPUBLICAN AGENCY This information is strictly Confidential and protected under [place] law. [place] law prohibits you from making any further disclosure of this information unless further disclosure is expressly permitted by the written consent of the person to whom it pertains or is authorized by law. A general authorization for the release of medical or other information is not sufficient for this purpose. Hospital accepts no responsibility if the information is made available to any other person, INCLUDING THE PATIENT. Interpretation Summary * Name: AYSE PAIGE Study Date: 11/30/2016 02:07 PM BP: 117/69 mmHg * Patient Location: .MSN\S\N386\S\2 HR: 92 * : 1965 (M/d/yyyy) Gender: Female Height: 60 in * Age: 51 yrs Ethnicity: [place] Weight: 169 lb * Ordering Physician: Mango Viramontes * Referring Physician: No Doctor, Assigned * Performed By: Dave Smith RCS * * Reason For Study: CHF * BSA: 1.7 m2 * -- Conclusions -- * There is mild concentric left ventricular hypertrophy. * The left ventricle is hyperdynamic. * Borderline left atrial enlargement. * There is mild to moderate mitral annular calcification. * Grade I diastolic dysfunction, (abnormal relaxation pattern). Procedure Details * Left Ventricle The left ventricle is normal in size. There is mild concentric left ventricular hypertrophy. The left ventricle is hyperdynamic. Ejection Fraction = 65-70%. Grade I diastolic dysfunction, (abnormal relaxation pattern). * Right Ventricle The right ventricle is normal in size and function. * Atria Borderline left atrial enlargement. Right atrial size is normal. * Mitral Valve There is mild to moderate mitral annular calcification. There is no mitral regurgitation noted. * Tricuspid Valve Significant tricuspid regurgitation is absent. * Aortic Valve The aortic valve is normal in structure and function. No hemodynamically significant valvular aortic stenosis. There is no significant aortic regurgitation. * Great Vessels The aortic root is normal size. * Pericardium/Pleural There is no pericardial effusion. * * MMode 2D Measurements and Calculations * IVSd 1.5 cm * IVSs 1.5 cm * * LVIDd 3.8 cm * LVIDs 2.5 cm * LVPWd 1.5 cm * LVPWs 1.7 cm * * IVS/LVPW 0.95 * FS 35.3 % * EDV(Teich) 62.4 ml * ESV(Teich) 21.6 ml * EF(Teich) 65.4 % * * EDV(cubed) 55.4 ml * ESV(cubed) 15.0 ml * EF(cubed) 72.9 % * % IVS thick 5.3 % * % LVPW thick 12.3 % * * LV mass(C)d 218.0 grams * LV mass(C)dI 125.5 grams/m\S\2 * LV mass(C)s 145.3 grams * LV mass(C)sI 83.6 grams/m\S\2 * * CO(Teich) 3.8 l/min * CI(Teich) 2.2 l/min/m\S\2 * SV(Teich) 40.8 ml * SI(Teich) 23.5 ml/m\S\2 * CO(cubed) 3.8 l/min * CI(cubed) 2.2 l/min/m\S\2 * SV(cubed) 40.4 ml * SI(cubed) 23.2 ml/m\S\2 * * Ao root diam 2.8 cm * Ao root area 6.3 cm\S\2 * ACS 1.5 cm * LA dimension 4.0 cm * * LA/Ao 1.4 * * LVAd ap4 28.1 cm\S\2 * LVLd ap4 7.7 cm * EDV(MOD-sp4) 84.0 ml * LVAs ap4 14.7 cm\S\2 * LVLs ap4 6.6 cm * ESV(MOD-sp4) 27.0 ml * EF(MOD-sp4) 67.9 % * * LVAd ap2 28.9 cm\S\2 * LVLd ap2 8.2 cm * EDV(MOD-sp2) 85.0 ml * LVAs ap2 14.2 cm\S\2 * LVLs ap2 6.1 cm * ESV(MOD-sp2) 28.0 ml * EF(MOD-sp2) 67.1 % * * CO(MOD-sp4) 5.3 l/min * CI(MOD-sp4) 3.1 l/min/m\S\2 * SV(MOD-sp4) 57.0 ml * SI(MOD-sp4) 32.8 ml/m\S\2 * * CO(MOD-sp2) 5.3 l/min * CI(MOD-sp2) 3.1 l/min/m\S\2 * SV(MOD-sp2) 57.0 ml * SI(MOD-sp2) 32.8 ml/m\S\2 * * * Doppler Measurements and Calculations * MV E max sahra 72.9 cm/sec * MV A max sahra 121.7 cm/sec * * MV E/A 0.60 * * MV P1/2t max sahra 94.3 cm/sec * MV P1/2t 53.0 msec * MVA(P1/2t) 4.2 cm\S\2 * MV dec slope 521.6 cm/sec\S\2 * MV dec time 0.32 sec * * Ao V2 max 228.0 cm/sec * Ao max PG 20.8 mmHg * Ao max PG (full) 9.0 mmHg * * LV V1 max PG 11.8 mmHg * * LV V1 max 171.4 cm/sec * * PA V2 max 108.2 cm/sec * PA max PG 4.7 mmHg * * *
[2016-11-30] MEDS: DOCUSATE SODIUM/SENNA 50/8.6MG TAB PO SCH (20:30)
[2016-11-30] MEDS: WARFARIN SOD 4 MG TAB PO SCH (20:30)
[2016-11-30] MEDS ORDERED: APIXABAN 2.5 MG TAB PO SCH (21:00)
[2016-11-30] MEDS: SENNA 8.6 MG TAB PO SCH (21:00)
[2016-11-30] MEDS: HYDROCODONE/ACETAMI 10/325 TAB PO PRN (21:35)
[2016-12-01] MEDS: HYDROCODONE/ACETAMI 10/325 TAB PO PRN ×3 (02:05→13:30)
[2016-12-01] MEDS: HYDROmorphone INJ 1 MG/ML SYR IV PRN (04:44)
[2016-12-01] MEDS: ACETAMINOPHEN 500 MG TAB PO SCH ×2 (05:51→13:30)
[2016-12-01 07:37] VITALS: BP 132/84; PULSE 95; TEMP 36.8; O2SAT 91
[2016-12-01 08:29] LABS: BASO % 0.2 %; BASO ABS # 0.04 K/uL (0-0.2); EOS % 1.8 %; HEMATOCRIT 26.7 % (37-47); IG% 0.6 %; LYMPH ABS # 0.81 K/uL (1.2-3.4); MEAN CELL VOLUME 99.6 fL (80-100); MEAN CORPUSCULAR HEMOGLOBIN 31.3 pg (25-34); MEAN CORPUSCULAR HGB CONC 31.5 g/dl (32-36); MEAN PLATELET VOLUME 9.7 fL (7.4-10.4); MONO % 6.6 %; NEUT % 85.8 %; PLATELET COUNT 221 K/uL (130-400); RED BLOOD COUNT 2.68 M/uL (4.2-5.4); WHITE BLOOD COUNT 16.32 K/uL (4.8-10.8)
[2016-12-01] MEDS: AMLODIPINE BESYLATE 5 MG TAB PO SCH (08:29)
[2016-12-01] MEDS: SERTRALINE HCL 100 MG TAB PO SCH (08:30)
[2016-12-01] MEDS: PANTOprazole SOD 40 MG TAB PO SCH (08:30)
[2016-12-01] MEDS: CYANOCOBALAMIN 500 MCG TAB (VIT B-12) PO SCH (08:30)
[2016-12-01] MEDS: TIOTROPIUM BROMIDE 5 PUFF/90 MCG INH INH SCH (08:32)
[2016-12-01] MEDS: NICOTINE 21 MG/24 HR TDSY TD SCH (08:33)
[2016-12-01] MEDS: NEPHROCAPS PO SCH (08:34)
[2016-12-01] MEDS: MULTIVITAMIN TAB PO SCH (08:34)
--- NOTE | 2016-12-01 08:43 | Orthopedic Progress Note ---
Orthopedic Progress Note Date of Service December 01, 2016. Subjective Post OP Day: 2 Reports: feeling well, Denies: SOB, calf pain, chest pain, light headedness, nausea / vomiting Additional Notes: PATIENT HAVING ISSUES WITH PAIN CONTROL. STILL NEEDING THE DILAUDID WITH HER NORCO 10/325 Q 4. Objective calves soft nontender, N/V intact, hip located, incision C/D/I, A&O x3, toes mobile Date Time Temp Pulse Resp B/P Pulse Ox O2 Delivery O2 Flow Rate FiO2 12/01/16 07:37 36.8 95 19 132/84 91 Nasal Cannula 2.0 11/30/16 23:45 36.8 94 20 132/86 93 3.0 11/30/16 22:45 37.1 90 16 119/81 98 2.0 11/30/16 22:17 36.4 92 16 113/74 92 11/30/16 21:45 37.1 93 16 127/76 91 11/30/16 21:30 36.8 93 16 116/75 93 11/30/16 21:13 36.9 95 20 109/70 88 11/30/16 19:50 Room Air 11/30/16 16:17 108 111/70 90 Room Air 11/30/16 16:16 96 118/75 94 Room Air 11/30/16 16:16 37.2 95 92/65 90 Room Air 11/30/16 13:00 36.9 101 20 99/67 90 Room Air 11/30/16 12:42 37.2 94 129/68 11/30/16 12:00 94 123/68 11/30/16 11:45 95 125/58 11/30/16 11:30 94 108/64 11/30/16 11:15 96 113/58 11/30/16 11:00 103 120/60 11/30/16 10:45 91 112/58 11/30/16 10:30 92 117/69 11/30/16 10:15 89 127/73 11/30/16 10:10 96 117/72 11/30/16 10:08 98 91/48 11/30/16 10:00 99 102/66 11/30/16 09:45 104 115/70 11/30/16 09:30 93 112/78 11/30/16 09:15 92 139/86 11/30/16 09:00 88 144/77 11/30/16 08:45 83 141/80 Laboratory Results 24 Hours: Test 11/30/16 14:20 12/01/16 08:13 White Blood Count 12.78 K/uL 16.32 K/uL Red Blood Count 2.43 M/uL 2.68 M/uL Hemoglobin 7.8 g/dL 8.4 g/dL Hematocrit 24.9 % 26.7 % Mean Corpuscular Volume 102.5 fL 99.6 fL Mean Corpuscular Hemoglobin 32.1 pg 31.3 pg Mean Corpuscular Hemoglobin Concent 31.3 g/dl 31.5 g/dl Platelet Count 236 K/uL 221 K/uL Mean Platelet Volume 9.8 fL 9.7 fL Neutrophils (%) (Auto) 87.5 % 85.8 % Lymphocytes (%) (Auto) 5.0 % 5.0 % Monocytes (%) (Auto) 5.9 % 6.6 % Eosinophils (%) (Auto) 1.0 % 1.8 % Basophils (%) (Auto) 0.2 % 0.2 % Neutrophils # (Auto) 11.17 K/uL 14.01 K/uL Lymphocytes # (Auto) 0.64 K/uL 0.81 K/uL Monocytes # (Auto) 0.76 K/uL 1.07 K/uL Eosinophils # (Auto) 0.13 K/uL 0.30 K/uL Basophils # (Auto) 0.03 K/uL 0.04 K/uL Assessment & Plan Assessment: POD 2 s/p Right HOWARD s/p displaced femoral neck fx Plan: PT/OT Pt hoping to go home with home PT. LABS PENDING TODAY. NEPHROLOGY WANTING TO SEE HER K+ BEFORE DECIDING IF SHE CAN GO HOME TODAY. WILL NEED DIALYSIS 12/03/16 IN [place] DISCUSSED PAIN CONTROL TODAY. RECOMMEND NOT USING DILAUDID TODAY. GOING TO ADD OXYCONTIN 10MG Q12. IF PAIN CONTROLLED- ORTHOPEDICALLY STABLE FOR DISCHARGE. FOLLOW UP [address] BERRY. [phone] CONT SHUN HOSE X 2 WEEKS COUMADIN PRESCRIBED. WILL NEED WEEKLY PT/INRs Inhouse Planning Pain Management: [place], Dilaudid DVT Prophylaxis: TEDs, SCDs, other (Apixaban) Discharge Planning Discharge Planning: home with home health (?) Pain Management: [place] DVT Prophylaxis: TEDs, other (Apixaban)
--- NOTE | 2016-12-01 08:46 | Consultant Recommendations ---
Rubber Worker Recommendations Date of Service December 01, 2016. Rubber Worker Recommendations ACTIVITY RECOMMENDATIONS: SELF CARE INSTRUCTIONS AFTER TOTAL HIP REPLACEMENT Until the incision and soft tissues around your hip have healed, there is a possibility that the hip prosthesis could dislocate. A. Observe the following precautions to prevent dislocation: 1. Don't bend your hip greater than 90 degrees. 2. Avoid crossing your legs or ankles while standing or lying. 3. Sit with your feet placed 6 inches apart. 4. When sitting, keep your knees below your hips. Sit on a firm surface, avoid deep, soft chairs and couches. Use an elevated toilet seat in the bathroom. 5. Don't bend over at the waist. Use a long handled shoehorn and a sock aid to help you put on your shoes and socks. A and rescue fire fighter crash fire can help you pickling drum operator objects that are too high or too low to reach. 6. Keep car riding to a minimum for at least one month after surgery. B. Your balance may be shaky for a while. Use crutches or a walker until directed by your doctor. C. Use hand rails when walking on stairs. D. Wear low heeled shoes with non-slip soles. E. Be sure that your floors are free of things that could trip you - throw rugs , electrical cords, small objects. Avoid wet and waxed floors, especially with crutches and canes. F. Try to walk several times a day with rest periods between. G. Continue with all the exercises taught to you in the hospital. Again, make walking a part of your daily routine. SPECIAL CARE INSTRUCTIONS: VERY IMPORTANT TO READ AND REVIEW A. You may still be at risk for phlebitis and blood clots. 1. Wear surgical stockings (SHUN hose) for 2 weeks after surgery to improve circulation and reduce swelling. 3. High risk patients may be prescribed a stronger blood thinner if necessary. COUMADIN- WILL REQUIRE WEEKLY BLOOD DRAWS AND DOSAGE CHANGES PER PCP/ CARDIO 4. If you are on Coumadin normally, your family doctor/fern cutter should monitor your blood work. Expect a phone call the day of or the day after bloodwork is drawn to adjust your dosage. B. You must take antibiotics before having dental work, bladder, bowel and other surgery. Your doctor will provide you with a permanent card to carry describing precautions. C. Call [facility] if you have a fever, redness or swelling around the incision, cloudy drainage from incision, or sudden increase in pain in your hip, not relieved by your regular pain medication. D. Please call the office at if you have any concerns or questions about your operation or recovery. * YOU MAY SHOWER, NO TUB BATHS UNTIL CLEARED BY YOUR DOCTOR. * WEAR SHUN HOSE 20 HOURS PER DAY FOR 2 WEEKS.. * MOST PATIENTS WILL HAVE HOME NURSING FOR THERAPY. IF YOU DECIDE TO DO OUTPATIENT PHYSICAL THERAPY, PLEASE SCHEDULE THIS 3 TIMES PER WEEK. * DERMABOND Prineo- This is a mesh tape dressing that is covered with glue. It should remain in place until the incision is properly healed, usually 10-14 days. This dressing is designed to naturally slough off. You may trim the excess mesh tape as it peels off. Incision may be briefly wet in a shower. Dry immediately by blotting with a clean, dry towel. Do not bath or swim until instructed by your doctor. Do not scratch, rub, or pick at the dressing. Do not apply any topical ointments or lotions until dressing is completely removed and/or instructed by your doctor. There may be a small piece of suture material at one end of your incision. Do not pull or trim this. If it is bothersome or catching on clothing, you may cover it with a band-aid. . FOLLOW UP VISIT: If appointment is not already scheduled: Please call [facility] to make a follow-up appointment for 2 weeks after your surgery at .
[2016-12-01 09:31] LABS: ANISOCYTOSIS PRESENT; COMPLETE YES
[2016-12-01 09:40] LABS: ALB/GLOB RATIO 0.9 (0.9-2); BUN/CREATININE RATIO 5.4 (10-20); CREATININE 5.8 mg/dl (0.60-1.20); MAGNESIUM 2.2 mg/dl (1.8-2.4); POTASSIUM 4.4 mmol/L (3.5-5.1)
[2016-12-01] MEDS ORDERED: NURSING VERBAL MED ORDER ONE ×2 (09:45)
[2016-12-01] MEDS ORDERED: OXYCODONE HCL 10 MG TABCR (OXYCONTIN) PO SCH (09:48)
--- NOTE | 2016-12-01 09:50 | Nephrology Progress Note ---
Nephrology Progress Note Date of Service December 01, 2016. Chief Complaint To provide in patient HD for this patient w/ ESRD on TTS HD admitted with right hip fracture. Subjective Ms. Mitchell was seen & examined in her hospital room this morning. She was dialyzed yesterday heparin free for 3.5 hours. Dialysis was complicated by hypotension. UF was reduced. Only ~ 800 cc UF obtained. Post HD H&H revealed Hgb 7.8. Patient received one unit PRBC last evening. This morning she is sitting up in bed eating breakfast. She denies fever, angina or dyspnea. She is anxious to be discharged to home. Review of Systems Constitutional: No fever Cardiovascular: No chest pain Respiratory: No dyspnea at rest Abdomen: No nausea, No pain, No vomiting Extremities: No leg edema A complete review of systems was performed. Pertinent positives are noted above. All other systems are negative. Vital Signs Last 8 Hrs Date Time Temp Pulse Resp B/P Pulse Ox O2 Delivery O2 Flow Rate FiO2 12/01/16 07:37 36.8 95 19 132/84 91 Nasal Cannula 2.0 I & O 24-Hour Column 12/01/16 08:00 Intake Total 550 ml Output Total 1540 ml Balance -990 ml Last Recorded Weight Weight (Kilograms): 76.000 Physical Exam General Appearance: no apparent distress Head: normocephalic, atraumatic Eyes: PERRL, EOMI Neck: no adenopathy Respiratory/Chest: lungs clear, no respiratory distress Cardiovascular: regular rate, rhythm Abdomen/GI: normal bowel sounds, non tender, soft Genitourinary - Female: + pertinent finding (torres catheter draining clear yellow urine) Extremities/Musculoskelatal: no pedal edema Neurologic/Psych: alert, oriented x 3 Family History Brother w/ ESRD from unknown cause. He is s/p renal transplant Social History . Medically disabled. 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 Son 08/10. Three children in good health. Current every day smoker. Laboratory Results Past 24 Hours 11/30/16 14:20 Red Blood Count 2.43, Mean Corpuscular Volume 102.5, Mean Corpuscular Hemoglobin 32.1, Mean Corpuscular Hemoglobin Concent 31.3, Mean Platelet Volume 9.8, Neutrophils (%) (Auto) 87.5, Lymphocytes (%) (Auto) 5.0, Monocytes (%) ( Auto) 5.9, Eosinophils (%) (Auto) 1.0, Basophils (%) (Auto) 0.2, Neutrophils # ( Auto) 11.17, Lymphocytes # (Auto) 0.64, Monocytes # (Auto) 0.76, Eosinophils # ( Auto) 0.13, Basophils # (Auto) 0.03 12/01/16 08:13 Red Blood Count 2.68, Mean Corpuscular Volume 99.6, Mean Corpuscular Hemoglobin 31.3, Mean Corpuscular Hemoglobin Concent 31.5, Mean Platelet Volume 9.7, Neutrophils (%) (Auto) 85.8, Lymphocytes (%) (Auto) 5.0, Monocytes (%) (Auto) 6.6, Eosinophils (%) (Auto) 1.8, Basophils (%) (Auto) 0.2, Neutrophils # (Auto) 14.01, Lymphocytes # (Auto) 0.81, Monocytes # (Auto) 1.07, Eosinophils # (Auto) 0.30, Basophils # (Auto) 0.04 11/30/16 13:47 Test 11/30/16 13:47 11/30/16 14:20 12/01/16 08:13 Anion Gap 8.0 mmol/L (3-11) Est Creatinine Clear Calc Drug Dose 16.4 ml/min Estimated GFR () 15.0 Estimated GFR (Non- 13.0 BUN/Creatinine Ratio 4.8 (10-20) Calcium Level 8.1 mg/dl (8.5-10.1) 9.0 mg/dl (8.5-10.1) Phosphorus Level 3.4 mg/dl (2.5-4.9) Magnesium Level 2.4 mg/dl (1.8-2.4) Total Bilirubin 0.2 mg/dl (0.2-1) Aspartate Amino Transf (AST/SGOT) 15 U/L (15-37) Alanine Aminotransferase (ALT/SGPT) 17 U/L (12-78) Alkaline Phosphatase 114 U/L (45-117) Total Protein 6.1 gm/dl (6.4-8.2) Albumin 2.9 gm/dl (3.4-5.0) Globulin 3.2 gm/dl (2.5-4.0) Albumin/Globulin Ratio 0.9 (0.9-2) White Blood Count 12.78 K/uL (4.8-10.8) 16.32 K/uL (4.8-10.8) Red Blood Count 2.43 M/uL (4.2-5.4) 2.68 M/uL (4.2-5.4) Hemoglobin 7.8 g/dL (12.0-16.0) 8.4 g/dL (12.0-16.0) Hematocrit 24.9 % (37-47) 26.7 % (37-47) Mean Corpuscular Volume 102.5 fL (80-100) 99.6 fL (80-100) Mean Corpuscular Hemoglobin 32.1 pg (25-34) 31.3 pg (25-34) Mean Corpuscular Hemoglobin Concent 31.3 g/dl (32-36) 31.5 g/dl (32-36) Platelet Count 236 K/uL (130-400) 221 K/uL (130-400) Mean Platelet Volume 9.8 fL (7.4-10.4) 9.7 fL (7.4-10.4) Neutrophils (%) (Auto) 87.5 % 85.8 % Lymphocytes (%) (Auto) 5.0 % 5.0 % Monocytes (%) (Auto) 5.9 % 6.6 % Eosinophils (%) (Auto) 1.0 % 1.8 % Basophils (%) (Auto) 0.2 % 0.2 % Neutrophils # (Auto) 11.17 K/uL (1.4-6.5) 14.01 K/uL (1.4-6.5) Lymphocytes # (Auto) 0.64 K/uL (1.2-3.4) 0.81 K/uL (1.2-3.4) Monocytes # (Auto) 0.76 K/uL (0.11-0.59) 1.07 K/uL (0.11-0.59) Eosinophils # (Auto) 0.13 K/uL (0-0.5) 0.30 K/uL (0-0.5) Basophils # (Auto) 0.03 K/uL (0-0.2) 0.04 K/uL (0-0.2) RDW Standard Deviation 65.8 fL (36.4-46.3) 65.8 fL (36.4-46.3) RDW Coefficient of Variation 17.6 % (11.5-14.5) 18.1 % (11.5-14.5) Immature Granulocyte % (Auto) 0.4 % 0.6 % Immature Granulocyte # (Auto) 0.05 K/uL (0.00-0.02) 0.09 K/uL (0.00-0.02) Red Blood Cell Morphology Unremarkable Allergies Coded Allergies: No Known Allergies (Unverified , 11/28/16) Medications Current Inpatient Medications Medications (Trade) Dose Ordered Sig/Francisco Route Start Time Stop Time Status Last Admin Dose Admin Amlodipine Besylate (Norvasc Tab) 10 mg DAILY PO 11/29/16 09:00 12/29/16 08:59 12/01/16 08:29 10 MG Cyanocobalamin (Vitamin B-12 Tab) 250 mcg DAILY PO 11/29/16 09:00 12/29/16 08:59 12/01/16 08:30 250 MCG Sertraline HCl (Zoloft Tab) 100 mg DAILY PO 11/29/16 09:00 12/29/16 08:59 12/01/16 08:30 100 MG Nicotine (Nicoderm Cq 21MG Patch) 1 patch QAM TD 11/29/16 09:00 12/29/16 08:59 12/01/16 08:33 1 PATCH Miscellaneous (Remove Nicoderm Patch) 1 ea HS N/A 11/28/16 21:00 12/28/16 20:59 11/30/16 20:28 1 EA Tiotropium Kermit (Spiriva Handihaler Inhaler) 1 puff QAM INH 11/29/16 09:00 12/29/16 08:59 12/01/16 08:32 1 PUFF Albuterol (Ventolin Hfa Inhaler) 1 puffs Q4 PRN INH 11/28/16 17:45 12/28/16 17:44 Naloxone HCl (Narcan Inj) 0.1 mg PRN PRN IV 11/28/16 20:15 12/28/16 20:14 Senna/Docusate Sodium (Senokot S Tab) 2 tab HS PO 11/28/16 21:00 12/28/16 20:59 11/30/16 20:30 2 TAB Polyethylene (Miralax Powder Packet) 17 gm DAILY PRN PO 11/28/16 20:15 12/28/16 20:14 Hydromorphone HCl 1 mg 1 mg Q2H PRN IV 11/29/16 02:00 12/13/16 01:59 12/01/16 04:44 1 MG Lorazepam/Syringe (Ativan Inj/ Syringe) 0.5 ml @ 0.5 mls/min Q4H PRN IV 11/29/16 00:45 12/29/16 00:44 11/29/16 09:39 0.5 MLS/MIN Vitamin B Complex/ Vit C/Folic Acid (Nephrocaps) 1 cap QAM PO 11/30/16 09:00 12/30/16 08:59 12/01/16 08:34 1 CAP Morphine Sulfate (MoRPHine SULFATE INJ) 2 mg Q2HWA PRN IV 11/29/16 18:00 12/13/16 17:59 Acetaminophen (Tylenol Tab) 1,000 mg Q8H PO 11/29/16 22:00 12/29/16 21:59 11/30/16 07:15 1,000 MG Magnesium Hydroxide (Milk Of Magnesia Susp) 30 ml Q6H PRN PO 11/29/16 18:00 12/29/16 17:59 Bisacodyl (Dulcolax Supp) 10 mg DAILY PRN ME 11/29/16 18:00 12/29/16 17:59 Sodium Biphosphate/ Sodium Phosphate (Fleet Enema) 132 ml DAILY PRN ME 11/29/16 18:00 12/29/16 17:59 Senna (Senokot Tab) 17.2 mg HS PO 11/29/16 21:00 12/29/16 20:59 11/29/16 21:02 17.2 MG Diphenhydramine HCl (Benadryl Cap) 25 mg Q8H PRN PO 11/29/16 18:00 12/29/16 17:59 Diphenhydramine HCl (Benadryl Inj) 25 mg Q8H PRN IV 11/29/16 18:00 12/29/16 17:59 Al Hydrox/Mg Hydrox/Simethicone (Maalox Max Susp) 15 ml Q4H PRN PO 11/29/16 18:00 12/29/16 17:59 Zolpidem Tartrate (Ambien Tab) 5 mg HSZ PRN PO 11/29/16 18:00 12/29/16 17:59 11/29/16 22:17 5 MG Multivitamins (Multivitamin Tab) 1 tab QAM PO 11/30/16 09:00 12/30/16 08:59 12/01/16 08:34 1 TAB Ondansetron HCl (Zofran Inj) 4 mg Q6H PRN IV 11/29/16 18:00 12/29/16 17:59 11/30/16 21:55 4 MG Metoclopramide HCl (Reglan Inj) 10 mg Q6H PRN IV 11/29/16 18:00 12/29/16 17:59 Pantoprazole Sodium (Protonix Tab) 40 mg QAM PO 11/30/16 09:00 12/30/16 08:59 12/01/16 08:30 40 MG Tramadol HCl (Ultram Tab) 1 TABLET FOR PAIN RATING... Q4H PRN PO 11/29/16 18:00 12/29/16 17:59 12/01/16 00:00 100 MG Acetaminophen/ Hydrocodone Bitart (Regina 10/325 Tab) 1 tab Q4H PRN PO 11/30/16 18:30 12/14/16 18:29 12/01/16 08:29 1 TAB Warfarin Sodium (Coumadin Tab) 4 mg DAILY@1600 PO 11/30/16 20:00 12/30/16 19:59 11/30/16 20:30 4 MG Impression (1) End-stage renal disease on hemodialysis (2) Femur fracture (3) Hypertension (4) Anemia (5) COPD (chronic obstructive pulmonary disease) (6) Current every day smoker (7) Depression Patient admitted following mechanical fall resulting in right femoral neck fracture. She is scheduled for orthopedic repair today. 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 Patient currently dialyzes TTS at [facility] (3.5hr 2K 2Ca HCO3 40 Na 138 Heparin 2000 load/1000hr EDW 68.5 Epo 5800 Venofer 50 weekly Hectrol 9 mcg each treatment). Patient dialyzes via R IJ THC she is awaiting AVF creation. PMH - ESRD, HTN, CHF, DVT on anticoagulation therapy, depression, COPD w/ ongoing tobacco use. Recommendations END STAGE RENAL DISEASE: -- HD RN notes from yesterday reviewed. Patient had hypotension during HD. Only ~ 800 cc UF obtained -- Post dialysis Hgb ~ 7.8. Patient transfused one unit PRBC. Hgb improved to 8.4 this am -- AM chemistries are pending. Patient is anxious to go home. Discussed w/ surgical service. Patient may be discharged if OK w/ surgery and chemistries are within acceptable limits -- Discussed importance of resuming TTS HD tomorrow at the [facility] HD unit if she is discharged. Patient voiced understanding HYPERTENSION: -- Blood pressure is currently acceptable. Continue to monitor. No change to current antihypertensive regimen at this time. ANEMIA: -- Monitor H&H -- Will provide DEMETRIA w/ dialysis treatments BONE & MINERAL METABOLISM: -- Zemplar provided w/ HD yesterday OTHER: -- Patient has h/o DVT on anticoagulation therapy. No data currently available regarding the safety of Eliquis in HD patients. Recommend using Warfarin if continued anticoagulation is needed. INR may be monitored at [facility] dialysis unit or patient may require referral to a local Warfarin clinic -- Recommend consultation w/ smoking cessation RN while hospitalized -- Await further Orthopedic input / intervention
[2016-12-01] MEDS ORDERED: MRLP17X PO (11:47)
[2016-12-01] MEDS ORDERED: HYDR-4079 PO (11:47)
[2016-12-01] MEDS ORDERED: OXYSR10 PO (11:47)
[2016-12-01] MEDS ORDERED: DLCS PR (11:47)
[2016-12-01] MEDS ORDERED: SENN8.6T7 PO (11:47)
[2016-12-01] MEDS ORDERED: NCDT21 TD (11:47)
[2016-12-01] MEDS ORDERED: CMD4 PO (11:47)
--- NOTE | 2016-12-01 11:48 | Discharge Instructions ---
Discharge Instructions Admission Admission Date: November 28, 2016 at 16:30 Admission Diagnosis: Fracture Of Right Femoral Neck. Care Plan - Goal(s): Improve function Care Plan - Instructions: Activity Recommendations: no limitations Recommended Home Diet: Renal VTE Core Measure Inpt VTE Proph given/why not?: Warfarin (Coumadin) Follow Up Follow-Up: Follow up with PCP to adjust INR Mary Ann Olivarez Recommendations: Call your doctor if: * Temperature above 101 degrees * Pain not relieved by pain medicine ordered * There is increased drainage or redness from any incision * You have any unanswered questions or concerns. Your Doctors Instructions noted above were prepared by provider Aby Fierro.
--- NOTE | 2016-12-01 15:13 | Discharge Summary ---
Discharge Summary Date of Service December 01, 2016. Discharge Summary Admission Date: November 28, 2016 at 16:30 Discharge Date: December 01, 2016 Discharge Disposition: Home with services Principal Diagnosis: R intracapsular femoral neck fracture Problems/Secondary Diagnoses: S/P mechanical fall and Right intracapsular femoral neck fracture. (likely osteoporitic fracture due to fall from ground level ) Incidental Lytic lesion intertrochanteric region, likely benign. End-stage renal disease. chronic diastolic heart failure History of recent deep venous thrombosis 6 months ago was On Eliquis, will switch it to warfarin when ok with orthopedic team Chronic obstructive pulmonary disease Tobacco abuse. Medication Reconciliation New Medications: Bisacodyl (Bisac-Evac) 10 Mg Supp 10 MG AL DAILY PRN for Constipation for 7 Days, #7 SUPP Hydrocodone/Acetaminophen 10MG/325MG ([place] 10MG/325MG) Tab 1 TAB PO Q6H PRN for Pain for 7 Days, #20 TAB PRN PAIN Nicotine (Nicotine) 1 Patch Tdsy 1 PATCH TD QAM for 30 Days, #7 4 Refills Oxycodone HCl (Oxycontin) 10 Mg Tabcr 10 MG PO Q12 for 7 Days, #14 Polyethylene (Miralax) 17 Gm Pow 17 GM PO DAILY PRN for Constipation for 30 Days, #30 Sennosides-Docusate Sodium (Senokot S) 1 Tab Tab 2 TAB PO HS for 30 Days, #60 TAB Warfarin Sod (Coumadin) 4 Mg Tab 4 MG PO DAILY@1600 for 30 Days, #30 TAB Continued Medications: Amlodipine (Norvasc) 10 Mg Tab 10 MG PO DAILY for 30 Days, #30 TAB Cholecalciferol (Vitamin D3) 1,000 Inter.unit Tab 1 TAB PO DAILY, #1 TAB Cyanocobalamin (Vitamin B-12) 250 Mcg Tab 250 MCG PO DAILY, #1 TAB Pantoprazole (Protonix) 40 Mg Tab 1 TAB PO DAILY for 30 Days, #30 TAB 3 Refills Sertraline Hcl (Zoloft) 100 Mg Tab 100 MG PO DAILY, #30 TAB Discontinued Medications: Apixaban (Eliquis) 5 Mg Tab 5 MG PO BID, #30 TAB Discharge Exam Review of Systems: Constitutional: No chills, No fatigue, No fever, No problem reported, No sweats, No weakness, No weight loss Eyes: No diplopia, No discharge, No eye pain, No problem reported, No redness, No worsening of vision ENT: No dental problems, No hearing loss, No nasal symptoms, No problem reported, No sore throat, No tinnitus, No trouble swallowing, No unusual epistaxis Respiratory: No cough, No dyspnea at rest, No dyspnea on exertion, No hemoptysis, No problem reported, No shortness of breath, No sputum, No wheezing Cardiovascular: No PND, No chest pain, No claudication, No edema, No orthopnea, No palpitations, No problem reported Abdomen: No GI bleeding, No constipation, No diarrhea, No nausea, No pain, No problem reported, No vomiting Musculoskeletal: + joint pain Genitourinary - Female: No dysmenorrhea, No dysuria, No hematuria, No menorrhagia, No metrorrhagia, No , No problem reported, No rash, No urinary frequency, No urinary incontinence, No urinary retention, No urinary urgency, No vaginal bleeding, No vaginal discharge, No vaginal itching, No vulvodynia Neurologic: No balance problems, No memory loss, No numbness/tingling, No paralysis, No problem reported, No vertigo, No weakness Psychiatric: No anhedonism, No anxiety, No depression symptoms, No insomnia , No problem reported, No substance abuse Endocrine: No excessive thirst, No excessive urination, No fatigue, No problem reported Hematologic / Lymphatic: No abnormal bleeding/bruising, No clotting problems , No night sweats, No problem reported, No swollen lymph nodes Integumentary: No bleeding, No color change, No itch, No new/changing skin lesions, No problem reported, No rash Physical Exam: General Appearance: WD/WN, no apparent distress Eyes: normal inspection, EOMI ENT: normal ENT inspection, hearing grossly normal Neck: supple Respiratory/Chest: chest non-tender, lungs clear, normal breath sounds, no respiratory distress, no accessory muscle use Cardiovascular: no edema, no gallop, no JVD, no murmur Abdomen / GI: normal bowel sounds, non tender, soft, no organomegaly, no pulsatile mass, normal rectal exam Extremities: normal inspection, no calf tenderness Neurologic/Psychiatric: 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 (likely osteoporitic fracture due to fall from ground level ) patient went to the OR , S/P uneventful procedure but went into SVT after the procedure that was self limiting, currently slightly tachycardic consult prenatal nurse appreciated, ordered 2D echo Hgb dropped to 7 , S/P transfuse one unit of PRPCs (D/W Dr. Jorgensen) Incidental Lytic lesion intertrochanteric region, likely benign.was found on CT for End-stage renal disease. she continued dialysis as per premises technician chronic diastolic heart failure her Eliquis was switch it to warfarin will need INR check 3 times a week until therapeutic then weekly for 3 weeks then as per PCP today her vital are normal and she will be discharged home Total Time Spent: Greater than 30 minutes This includes examination of the patient, discharge planning, medication reconciliation, and communication with other providers. Discharge Instructions Please refer to the electronic Patient Visit Report (Discharge Instructions) for additional information.
[2016-12-01] MEDS ORDERED: VTMD OR (15:29)
[2016-12-01 15:58] VITALS: BP 122/79; PULSE 90; TEMP 36.8; O2SAT 87
[2016-12-01] MEDS: WARFARIN SOD 4 MG TAB PO SCH (16:08)
[2016-12-01] MEDS: TRAMADOL HCL 50 MG TAB PO PRN ×2 (16:12)
[2016-12-01 16:41] VITALS: O2SAT 91
[2016-12-05] MEDS ORDERED: ERGOCALCIFEROL 50,000 INTER.UNIT CAP PO SCH (09:00)
== END 2016-12-01 17:45 | disposition home health service (06) | DRG 469 ==
LOC: C.MSN 16:30
PROVIDERS: ADMIT Family Medicine; ATTEND Internal Medicine
PROC: 0SR90JZ Replacement of Right Hip Joint with Synthetic Substitute, Open Approach (ICD-10-PCS; principal; 2016-11-29 14:15)
DX: M80.851A Other osteoporosis with current pathological fracture, right femur, initial encounter for fracture (principal); N18.6 End stage renal disease; I13.2 Hypertensive heart and chronic kidney disease with heart failure and with stage 5 chronic kidney disease, or end stage renal disease; I50.32 Chronic diastolic (congestive) heart failure; I47.1 Supraventricular tachycardia; M89.9 Disorder of bone, unspecified; J44.9 Chronic obstructive pulmonary disease, unspecified; D64.9 Anemia, unspecified; F32.9 Major depressive disorder, single episode, unspecified; F17.210 Nicotine dependence, cigarettes, uncomplicated; Z99.2 Dependence on renal dialysis; Z86.718 Personal history of other venous thrombosis and embolism; Z79.01 Long term (current) use of anticoagulants; Z79.899 Other long term (current) drug therapy; W01.0XXA Fall on same level from slipping, tripping and stumbling without subsequent striking against object, initial encounter; Y92.22 Religious institution as the place of occurrence of the external cause